=== PATIENT | male | born 1950 | race Caucasian/White ===

== ENCOUNTER → 2020-03-28 | Outpatient (CLI) | payer MEDICARE, OTHER ==
--- NOTE | 2020-03-28 14:16 | XR ---
Right shoulder HISTORY: Right shoulder pain 3 views of the right shoulder Arthropathy is present at the acromioclavicular joint. Right lung apex as visualized is normal. No fr acture or dislocation. IMPRESSION: Acromioclavicular joint arthropathy. Shoulder MRI may be of benefit.
== END | disposition home or self-care (01) ==
LOC: RADXRMAIN 11:33
PROVIDERS: ATTEND Nurse Practitioner Gerontology
DX: M12.811 Other specific arthropathies, not elsewhere classified, right shoulder (principal)

== ENCOUNTER → 2021-01-01 | Outpatient (CLI) | payer MEDICARE, OTHER ==
--- NOTE | 2021-01-01 13:51 | XR ---
EXAMINATION TYPE: XR hand complete LT DATE OF EXAM: 01/01/2021 COMPARISON: NONE HISTORY: Left hand pain TECHNIQUE: Three views are submitted. FINDINGS: The osseous structures are intact. Severe arthropathy of the first carpal metacarpal joint and second MCP joint, and there is no acute fracture or dislocation. IMPRESSION: 1. 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
== END | disposition home or self-care (01) ==
LOC: RADXRMAIN 12:12
PROVIDERS: ATTEND Physician Assistant
DX: M19.042 Primary osteoarthritis, left hand (principal)

== ENCOUNTER 2022-03-18 09:45 | Day surgery (SDC) | payer MEDICARE, OTHER ==
--- NOTE | 2022-03-16 10:47 | P.HPOR ---
History of Present Illness H&P Date: 03/16/22 Chief Complaint: Right thumb CMC arthritis, Right index finger MCP arthritis Subjective: This is a 71 year old male that presents today for initial evaluation regarding a 5 year history of progressively worsening bilateral hand pain, the right is worse than the left. He has tried steroid injections for his problems of the last 7 to 8 years with little relief. He now has daily pain effecting his ability to pinch, grasp and make a fist. Most of his pain is isolated to the index MCP joint and base of the thumb. He has tried NSAID creams with little relief. Physical Examination: LUE: AIN/PIN/Radial/Ulnar/Median motor intact. Radial/Ulnar/Median SILT. 2+/4 Radial/Ulnar pulses palpated. 5/5 APB, 5/5 FDI. Negative Finkelsteins, positive CMC grind, negative Durkan's compression. TTP over index MCP joint 0-50 ROM. RUE: AIN/PIN/Radial/Ulnar/Median motor intact. Radial/Ulnar/Median SILT. 2+/4 Radial/Ulnar pulses palpated. 5/5 APB, 5/5 FDI. Negative Finkelsteins, Positive CMC grind, negative Durkan's compression. TTP over index MCP joint 0-30 ROM. Imaging: X-Rays of the left hand demonstrate severe thumb CMC arthritis, moderate left index finger MCP joint arthritis X-Rays of the right hand demonstrate severe thumb CMC arthritis, severe left index finger MCP joint arthritis Impression: 1.) B/l thumb CMC arthritis, severe. 2.) Right index finger MCP arthritis, severe Plan: Diagnosis and treatment options were discussed with the patient. He has failed conservative treatment and his symptoms are effecting him on a daily basis. He would like to pursue surgery on the right side. I recommend right thumb CMC tendon transfer arthroplasty with right index finger MCP joint silastic implant arthroplasty with possible radial collateral ligament repair/reconstruction. Risks and benefits of surgery including bleeding, infection, damage to surrounding tissue, need for further surgery, residual numbness were discussed and the patient wished to go forward with surgery. PCP clearance is requested. -Ashish Wilkins DO Orthopedic Hand/Upper Extremity Surgeon Physical Examination Osteopathic Statement: *. No significant issues noted on an osteopathic structural exam other than those noted in the History and Physical/Consult.
[2022-03-17 10:10] VITALS: BMI 25.4
[2022-03-18] MEDS ORDERED: LACTATED RINGERS 1,000 ML IV ONE ×2 (10:05→12:30)
[2022-03-18] MEDS ORDERED: MIDAZOLAM 2 MG/2 ML VIAL IVP ONE (10:47)
[2022-03-18] MEDS ORDERED: ONDANSETRON 4 MG/2 ML VIAL ONE (10:58)
[2022-03-18] MEDS ORDERED: DEXAMETHASONE SOD PHOSPHATE 4 MG/ML 1 ML VIAL IVP ONE (11:02)
[2022-03-18] MEDS ORDERED: ONDANSETRON 4 MG/2 ML VIAL IVP ONE (11:03)
[2022-03-18] MEDS ORDERED: ePHEDrine 50 MG/ML 1 ML VIAL ONE (11:23)
[2022-03-18] MEDS ORDERED: fentaNYL (PF) 50 MCG/ML 2 ML AMP ONE (11:23)
[2022-03-18] MEDS ORDERED: MIDAZOLAM 2 MG/2 ML VIAL ONE (11:23)
[2022-03-18] MEDS ORDERED: PROPOFOL 10 MG/ML 20 ML VIAL IV ONE (11:23)
[2022-03-18] MEDS ORDERED: DEXAMETHASONE SOD PHOSPHATE 4 MG/ML 1 ML VIAL ONE (11:23)
[2022-03-18] MEDS ORDERED: KETOROLAC 15 MG/ML 1 ML VIAL ONE (11:23)
[2022-03-18] MEDS ORDERED: ROPIVACAINE 5 MG/ML 30 ML VIAL ONE (11:23)
[2022-03-18] MEDS ORDERED: LIDOCAINE 1% INJ 10MG/ML (20 ML MDV) SQ ONE (13:48)
[2022-03-18] MEDS ORDERED: BUPIVACAINE (PF) 0.5% 30 ML VIAL SQ ONE (13:48)
[2022-03-18 14:13] VITALS: TEMP 97
[2022-03-18 14:54] VITALS: RESP 18
[2022-03-18] MEDS ORDERED: HYDROcodone/APAP 5-325MG 1 EACH TAB ONE (15:25)
[2022-03-18] MEDS ORDERED: HYDROcodone/APAP 5-325MG 1 EACH TAB PO ONE (15:27)
[2022-03-18 16:33] VITALS: BP 137/83; PULSE 75
--- NOTE | 2022-03-18 19:30 | P.OP ---
Date of Procedure: 03/18/22 Preoperative Diagnosis: 1.) Right thumb CMC arthritis 2.) Right index finger MCP joint arthritis Postoperative Diagnosis: 1.) Right thumb CMC arthritis 2.) Right index finger MCP joint arthritis Procedure(s) Performed: 1.) Right thumb carpometacarpal basal joint arthoplasty with trapezium resection 2.) Right index finger metacarpophalangeal arthroplasty with prosthetic implant. Implants: 1.) Arthrex 3.5 Swivel-Lock suture anchor x1 (Thumb CMC) 2.) BioPro Osteotec Silicone finger implant, size 5. (Index MCP joint) [facility], [facility] Surgeon: Ashish Wilkins Acquisitions Editor #1: Anurag Landers Estimated Blood Loss (ml): 5 Pathology: none sent Condition: stable Disposition: PACU Description of Procedure: This is a 71 year old male who presents today for a right thumb CMC basal joint arthroplasty and right index finger MCP joint arthroplasty after having failed conservative treatment for severe thumb CMC and right index finger arthritis. Risks and benefits of surgery were discussed with the patient including bleeding, damage to surrounding tissue, infection, need for further surgery as well as risks of anesthesia including pulmonary embolism and even and the patient wished to proceed with surgical intervention. The patients was seen in the pre-operative area by myself. Consent and H&P were completed and updated. The correct extremity was marked in the pre-operative area by myself and all other questions were answered. Patient received a upper extremity nerve block by the department of anesthesia. He then was brought to the operating room by the department of anesthesia. They remained on the portable stretcher and a rolling hand table was brought to the side of the operative extremity. The patient was then drifted off to sleep by the department of anesthesia. A nonsterile tourniquet was then applied to the operative extremity and the right upper extremity was then prepped and draped in normal sterile fashion. Pre-operative time out was performed indicating the correct patient, procedure and laterality. All in the room agreed. Pre-operative antibiotics were given prior to skin incision. The operative extremity was the exsanguinated with an esmarch bandage and the tourniquet was inflated to 250mmHg. Longitudinal incision was made over the left thumb CMC joint with a 15 blade scalpel. Blunt dissection was taken down to subcutaneous tissues with littler scissors taking care to preserve the branches of the superficial radial nerve. Dorsal radial artery was identified proximally in the incision and protected throughout the procedure. Scalpel was then made to incise the thumb CMC joint creating full thickness flaps off of the proximal metacarpal base and trapezium, this plane was further developed with a periosteal elevator. Elevator was then utilized to identify the thumb CMC joint and scaphotrapezial joint. McGlamory elevator and rongeur were then used to excise the trapezium. Guidewire was then introduced down to the laser line at the base of the first metacarpal through the same incision and was over drilled. Another guidewire was then inserted at the radial base of the first metacarpal near the Insertion of APL and was then over drilled with normal drill guide. A 3.5mm Arthrex SwiveLock anchor was then inserted into the base of the first metacarpal. While holding the thumb in slight traction and full adduction, another 3.5mm Arthrex SwiveLock anchor was inserted into the base of the second metacarpal and the two strands of fibertape were centered across the first metacarpal base to create a sling around the base suspending the thumb metacarpal, good zenon purchase was appreciated. The thumb was successfully suspended and full ROM was achieved passively. Suture ends were cut and skin was closed with several interrupted 4-0 Monocryl sutures followed by a running 4-0 Monocryl stitch. Attention was then drawn to the index finger MCP joint. 15 blade scalpel was used to make a longitudinal incision over the dorsal aspect of the MCP joint. Blunt dissection was taken down to the extensor tendons taking care to protect dorsal sensory nerves. Longitudinal incision was made just radial to the extensor tendon to reveal dorsal capsule. Retractors were placed deep to extensor tendon and plane was developed between dorsal capsule and extensor tendon. Longitudinal incision was made centered over the dorsal capsule and full thickness flaps were created. There was severe arthritic changes at the metacarpal head and proximal phalanx base. Osteophytes were removed with rongeur. Radial and ulnar collateral ligaments were preserved. The joint was then flexed and a micro saggital saw was used to make a tough up cut parallel to the joint line first on proximal phalanx side. Saw was then used to make a parallel cut of the distal portion of the metacarpal head to remove the articular surface while preserving the metaphyseal flare and origins of the collateral ligaments. 3.0 Drill bit was then utilized to enter into the medullary canal, the bone was very hard and sclerotic. Canal finder awl was then used to enter the canal of the proximal phalanx. Sequential broaching was the performed starting with a size 00. When a size 4 was reached, this had good fit and fill of the medullary canal. Starting awl was then inserted into the metacarpal shaft and sequential broaching was performed starting with a size 00 up to a size 4, this had good fit and fill of the medullary canal. Trial size 4 implant was then inserted and found to be undersized. Size 5 was inserted and this matched the patients [id number] anatomy best. The finger was ranged and stable flexion/extension was appreciated. Mini C-arm was utilized to confirm appropriate articular alignment and a symmetric gap. The wound was then irrigated. A final size 5 BioPro Osteotec silastic implant was inserted into the medullary canals under direct visualization. The finger was again ranged and stable flexion/extension was observed and radial and ulnar collateral ligaments were stressed and found to be providing good stability. Layered closure was performed with 3-0 Monocryl suture for capsular closure followed by extensor ragsdale closure with running 3-0 Monocryl suture with skin closure being performed with several interrupted 4-0 Monocryl sutures followed by a running Monocryl suture. 19cc's total of 0.5% bupivicaine and 1% lidocaine was used to perform regional blocks of the index and thumb. Sterile dressing consisting of mastisol and steri strips followed by 4x4s cast padding, and a thumb spica plaster splint and volar splint was applied. Tourniquet was let down and the hand had brisk cap refill and normal perfusion immediately. The patient was then woken by the department of anesthesia and transferred to PACU in stable condition. Anurag CARMONA was present for the case and assisted in major portions of procedure and protection of vital neurovascular structures. Ashish Wilkins DO Orthopedic Hand/Upper Extremity Surgeon
--- NOTE | 2022-03-19 19:55 | P.ANPRN ---
Procedure Note - Anesthesia - Nerve Block Performed Right Supraclavicular Single Time Out Performed: Yes Date of Procedure: 03/18/22 Procedure Start Time: 10:46 Procedure Stop Time: 10:50 Location of Patient: PreOp Indication: Acute Post-Operative Pain, Requested by Surgeon Sedation Type: Sedate with meaningful contact maintained Preparation: Sterile Prep Position: Supine Needle Types: Pajunk Needle Gauge: 21 Ultrasound used to visualize needle placement: Yes Ultrasound used to observe medication spread: Yes Blood Aspirated: No Pain Paresthesia on Injection Noted: No Resistance on Injection: Normal Image Stored and Saved: Yes Events: Uneventful and Well Tolerated (Ropivacaine 0.5% 20 mL plus dexamethasone 4 mg)
== END 2022-03-18 16:35 | disposition home or self-care (01) ==
LOC: OR 09:45
PROVIDERS: ATTEND Orthopaedic Surgery Hand Surgery
DX: M18.11 Unilateral primary osteoarthritis of first carpometacarpal joint, right hand (principal); M19.041 Primary osteoarthritis, right hand; I10 Essential (primary) hypertension; J45.909 Unspecified asthma, uncomplicated; K51.90 Ulcerative colitis, unspecified, without complications; Z79.899 Other long term (current) drug therapy
CPT/HCPCS: 64415; 76942; 25447; 26531; C1713; J2250; J1100; J0690; J2405; J2001; J3010; J2795; J1885; J2704

== ENCOUNTER 2023-07-27 07:20 | Day surgery (SDC) | payer MEDICARE, OTHER ==
[2023-07-23 15:14] VITALS: BMI 26.4
[~2023-07-27 07:20] MED LIST: HYDROmorphone 0.5 MG/0.5 ML SYRINGE IVP PRN; LACTATED RINGERS 1,000 ML IV SCH
[2023-07-27] MEDS: LACTATED RINGERS 1,000 ML IV SCH (07:56)
[2023-07-27 08:04] VITALS: TEMP 97.2
[2023-07-27] MEDS ORDERED: PROPOFOL 10 MG/ML 20 ML VIAL IV ONE (08:50)
[2023-07-27] MEDS ORDERED: LIDOCAINE 1% INJ 10MG/ML (20 ML MDV) ONE (08:50)
--- NOTE | 2023-07-27 09:08 | P.PCN ---
Date of Procedure: 07/27/23 Procedure(s) Performed: BRIEF HISTORY: Patient is a 73-year-old pleasant white male scheduled for an elective colonoscopy as a part of surveillance of long-standing history of ulcerative colitis diagnosed 6 years ago. He is presently maintained on Filgotinib 100 mg daily on a study protocol That he was enrolled about 5 years ago. PROCEDURE PERFORMED: Colonoscopy with biopsy. PREOPERATIVE DIAGNOSIS: Long-standing history of ulcerative colitis. IV sedation per Anesthesia. PROCEDURE: After informed consent was obtained, the patient, was brought into the endoscopy unit. IV sedation was administered by Anesthesia under continuous monitoring. Digital rectal examination was normal. Initially the Olympus CF-160 flexible video colonoscope was then inserted in the rectum, gradually advanced into the cecum without any difficulty. Careful examination was performed as the scope was gradually being withdrawn. Ileocecal valve and the appendiceal orifice were visualized and appeared normal. Prep was excellent. Mucosa of the cecum, ascending colon, transverse colon, descending colon, sigmoid colon, and rectum appeared normal. Random biopsies were done from cecum to rectum at every 10 cm intervals to rule out dysplasia Retroflexion was performed in the rectum and no lesions were seen. The patient tolerated the procedure well. IMPRESSION: Normal-appearing colon from rectum to cecum with no evidence of colitis or colorectal neoplasia. RECOMMENDATIONS: Findings of this examination were discussed with the patient as well as his family. He was advised to follow with the biopsy results. If the biopsies do not show any evidence of dysplasia, he can have a repeat colonoscopy in 2 years..
[2023-07-27 09:45] VITALS: BP 121/75; PULSE 61; RESP 18
== END 2023-07-27 09:50 | disposition home or self-care (01) ==
LOC: ORWHC2ENDO 07:20
PROVIDERS: ATTEND Internal Medicine Gastroenterology
DX: K62.89 Other specified diseases of anus and rectum (principal); I10 Essential (primary) hypertension; J44.9 Chronic obstructive pulmonary disease, unspecified; M19.90 Unspecified osteoarthritis, unspecified site; Z79.899 Other long term (current) drug therapy; Z88.1 Allergy status to other antibiotic agents; Z88.2 Allergy status to sulfonamides; Z88.0 Allergy status to penicillin; Z88.8 Allergy status to other drugs, medicaments and biological substances; Z79.1 Long term (current) use of non-steroidal anti-inflammatories (NSAID)
CPT/HCPCS: 45380; J2001; J2704; 88305

== ENCOUNTER 2023-12-22 19:55 | Observation (INO) | payer MEDICARE, OTHER ==
[2023-12-22 21:29] LABS: Basophils # (A) 0.1 k/uL (0-0.2); Basophils % (A) 1 %; Eosinophils # (A) 0.2 k/uL (0-0.7); Eosinophils % (A) 3 %; HCT 46.2 % (39.0-53.0); HGB 15.4 gm/dL (13.0-17.5); Lymphocytes # (A) 1.9 k/uL (1.0-4.8); Lymphocytes % (A) 22 %; MCH 34.9 pg (25.0-35.0); MCHC 33.3 g/dL (31.0-37.0); MCV 104.7 fL (80.0-100.0); Macrocytosis Slight; Mean Platelet Volume 6.8; Monocytes # (A) 0.6 k/uL (0-1.0); Monocytes % (A) 7 %; Neutrophils # (A) 5.4 k/uL (1.3-7.7); Neutrophils % (A) 64 %; Platelet Count 375 k/uL (150-450); RBC 4.41 m/uL (4.30-5.90); RDW 12.2 % (11.5-15.5); WBC 8.4 k/uL (3.8-10.6)
--- NOTE | 2023-12-22 21:30 | XR ---
EXAMINATION TYPE: XR chest 2V DATE OF EXAM: 12/22/2023 9:19 PM CLINICAL INDICATION:Male, 73 years old with history of lightheadedness; [facility] COMPARISON: None TECHNIQUE: XR chest 2V Frontal view of the chest. FINDINGS: Lungs/Pleura: There is no evidence of pleural effusion, focal consolidation, or pneumothorax. Pulmonary vascularity: Unremarkable. Heart/mediastinum: Cardiomediastinal silhouette is unremarkable. Musculoskeletal: No acute osseous pathology. IMPRESSION: No acute cardiopulmonary disease/process.
[2023-12-22 21:39] LABS: INR 1.1 (<1.2); Prothrombin Time 11.7 sec (10.0-12.5)
--- NOTE | 2023-12-22 21:39 | CT ---
EXAMINATION TYPE: CT brain wo con CT DLP: 1180.4 mGycm, Automated exposure control for dose reduction was used. DATE OF EXAM: 12/22/2023 9:25 PM COMPARISON: None. CLINICAL INDICATION:Male, 73 years old with history of diplopia, Dizziness and double vision x 1 hour . TECHNIQUE: Brain: Axial CT images of the brain were obtained with coronal and sagittal reformats created and rev iewed. Contrast used: None. Oral contrast used: None. FINDINGS: Brain: Extra-axial spaces: No abnormal extra-axial fluid collections. Ventricular system: Dilatation in proportion to cerebral atrophy. Cerebral parenchyma: Cerebral atrophy. No acute intraparenchymal hemorrhage or mass effect. The mercado -white junction is well differentiated. Scattered hypoattenuating areas are seen within the white mat ter. Cerebellum: Unremarkable. Mass effect: No evidence of midline shift. Intracranial vasculature: unremarkable Soft tissues: Normal. Calvarium/osseous structures: No depressed skull fracture. Paranasal sinuses and mastoid air cells: Mild scattered paranasal sinus disease. Visualized orbits: Orbital contents are intact. IMPRESSION: 1. No acute intracranial process. 2. Nonspecific white matter changes, likely secondary to chronic small vessel ischemic disease.
[2023-12-22 21:45] LABS: ALT 128 U/L (4-49); AST 163 U/L (17-59); African American GFR (CKD) 78 (>60 ml/min/1.73 sqM); Albumin 4.8 g/dL (3.5-5.0); Alkaline Phosphatase 68 U/L (38-126); Anion Gap 13 mmol/L; Blood Urea Nitrogen 12 mg/dL (9-20); Calcium 9.6 mg/dL (8.4-10.2); Carbon Dioxide 23 mmol/L (22-30); Chloride 104 mmol/L (98-107); Glucose 77 mg/dL (74-99); Non-African American GFR(CKD) 67 (>60 ml/min/1.73 sqM); Potassium 4.3 mmol/L (3.5-5.1); Sodium 140 mmol/L (137-145); Total Bilirubin 0.6 mg/dL (0.2-1.3); Total Protein 7.9 g/dL (6.3-8.2)
--- NOTE | 2023-12-22 22:14 | ED ---
Dizziness HPI - General Chief Complaint: Dizziness Stated Complaint: dizziness Time Seen by Provider: 12/22/23 20:55 Source: patient, RN notes reviewed Mode of arrival: ambulatory - History of Present Illness Initial Comments: 73-year-old male with history of hypertension presenting to the ER with chief complaint of episode of diplopia 1 hour ago. States he was sitting on his back patio when he began to experience double vision in both eyes that lasted about 30 minutes with associated lightheadedness. He has never had this before. States he is currently asymptomatic. Denies headache, chest pain, palpitations, shortness of breath. Denies blood thinners. Denies history of ID or stroke. - Related Data Home Medications Medication Instructions Recorded Confirmed Diclofenac Sodium [Voltaren] 75 mg PO BID 03/17/22 07/23/23 Filgotinib-100 Mg 100 mg PO DAILY 03/17/22 07/27/23 Fluticasone Propion/Salmeterol 2 puff INHALATION DAILY PRN 03/17/22 07/23/23 [Advair Hfa 115-21 Mcg Inhaler] Mesalamine 2.4 gm PO DAILY 03/17/22 07/23/23 Timolol 0.5% Ophth Soln [Timoptic 1 drop BOTH EYES DAILY 03/17/22 07/23/23 0.5% Ophth Soln] amLODIPine [Norvasc] 2.5 - 5 mg PO BID PRN 03/17/22 07/23/23 Bimatoprost [Lumigan 0.01% Ophth 1 drop BOTH EYES HS 06/18/23 07/23/23 Soln] Montelukast [Singulair] 5 mg PO QAM 06/18/23 07/23/23 Allergies Allergy/AdvReac Type Severity Reaction Status Date / Time cephalexin [From Keflex] AdvReac Nausea & Verified 07/27/23 07:44 Vomiting & Diarrhea ciprofloxacin [From Cipro] AdvReac Nausea & Verified 07/27/23 07:44 Vomiting & Diarrhea clindamycin AdvReac Nausea & Verified 07/27/23 07:44 Vomiting prednisone AdvReac Confusion,DIZZINESS Verified 07/27/23 07:44 if higher dose than 10mg sulfamethoxazole AdvReac Nausea & Verified 07/27/23 07:44 [From Vomiting Sulfamethoxazole-Trimethoprim] Tetracyclines AdvReac Nausea & Verified 07/27/23 07:44 Vomiting & Diarrhea trimethoprim AdvReac Nausea & Verified 07/27/23 07:44 [From Vomiting Sulfamethoxazole-Trimethoprim] Review of Systems ROS Statement: Those systems with pertinent positive or pertinent negative responses have been documented in the HPI. ROS Other: All systems not noted in ROS Statement are negative. Past Medical History Past Medical History: Asthma, Cancer, Eye Disorder, Hypertension, Osteoarthritis (OA) Additional Past Medical History / Comment(s): GLAUCOMA-BILAT EYES, basal cell more than 10 yrs ago. ULCERATUVE COLITIS History of Any Multi-Drug Resistant Organisms: None Reported Past Surgical History: Hernia Repair, Tonsillectomy Additional Past Surgical History / Comment(s): COLONOSCOPY, rt hand removed a joint and replaced with cable. HERNIA X 4 Past Anesthesia/Blood Transfusion Reactions: No Reported Reaction Smoking Status: Former smoker - Past Family History Mother Family Medical History: Chest Pain / Angina Father Additional Family Medical History / Comment(s): many health problems General Exam General appearance: alert, in no apparent distress Head exam: Present: atraumatic, normocephalic, normal inspection Eye exam: Present: normal appearance, PERRL, EOMI. Absent: scleral icterus, conjunctival injection, periorbital swelling Neck exam: Present: normal inspection. Absent: tenderness, meningismus, lymphadenopathy Respiratory exam: Present: normal lung sounds bilaterally. Absent: respiratory distress, wheezes, rales, rhonchi, stridor Cardiovascular Exam: Present: regular rate, normal rhythm, normal heart sounds. Absent: systolic murmur, diastolic murmur, rubs, gallop, clicks GI/Abdominal exam: Present: soft, normal bowel sounds. Absent: distended, tenderness, guarding, rebound, rigid Extremities exam: Present: normal inspection Back exam: Present: normal inspection Neurological exam: Present: alert, oriented X3, CN II-XII intact Psychiatric exam: Present: normal affect, normal mood Skin exam: Present: warm, dry, intact, normal color. Absent: rash Course Vital Signs 12/22/23 12/22/23 19:57 21:01 Temperature 97.5 F L Pulse Rate 66 75 Respiratory 18 17 Rate Blood Pressure 149/98 124/90 O2 Sat by Pulse 96 94 L Oximetry EKG Findings - EKG Results: EKG: interpreted by ERMD (EKG reveals normal sinus rhythm with no ST changes. Ventricular rate 65 bpm, TX interval 200, QRS duration 96, QT/QTc 414/425.) Medical Decision Making - Medical Decision Making Was pt. sent in by a medical professional or institution (KRISTINE Chacon, [employer] VE[employer]LE ESCORT DRIVER, urgent care, hospital, or [facility]...) When possible be specific @ -No Did you speak to anyone other than the patient for history (EMS, parent, family, police, friend...)? What history was obtained from this source @ -No Did you review nursing and triage notes (agree or disagree)? Why? @ -I reviewed and agree with nursing and triage notes Were old charts reviewed (outside hosp., previous admission, EMS record, old EKG, old radiological studies, urgent care reports/EKG's, [facility] records)? Report findings @ -No old charts were reviewed Differential Diagnosis (chest pain, altered mental status, abdominal pain women, abdominal pain men, vaginal bleeding, weakness, fever, dyspnea, syncope, headache, dizziness, GI bleed, back pain, seizure, CVA, palpatations, mental health, musculoskeletal)? @ -Differential CVA Ischemic stroke, hemorrhagic stroke, brain tumor, atypical migraine, Wernicke's encephalopathy, seizure, multiple sclerosis, meningitis, encephalitis, hypoglycemia, Guillain-Briggs, electrolytes disturbance, myasthenia gravis.... This is not meant to be an all-inclusive list EKG interpreted by me (3pts min.). @ -As above X-rays interpreted by me (1pt min.). @ -Chest x-ray reveals no acute process CT interpreted by me (1pt min.). @ -CT of head revealed no acute intracranial process, nonspecific white matter changes, likely secondary to chronic small vessel ischemic disease U/S interpreted by me (1pt. min.). @ -None done What testing was considered but not performed or refused? (CT, X-rays, U/S, labs)? Why? @ -None What meds were considered but not given or refused? Why? @ -None Did you discuss the management of the patient with other professionals (professionals i.e. KRISTINE Chacon, [employer] VEH[employer] ESCORT DRIVER, lab, RT, psych nurse, social services, contact center team lead, teacher, fisheries technical officer, manager of case management)? Give summary @ -I spoke with Stephanie from [facility] who accepts admission at this time for TIA with consultation to neurology services Was smoking cessation discussed for >3mins.? @ -No Was critical care preformed (if so, how long)? @ -No Were there social determinants of health that impacted care today? How? (Homelessness, low income, unemployed, alcoholism, drug addiction, transportation, low edu. Level, literacy, decrease access to med. care, custodial, rehab)? @ -No Was there de-escalation of care discussed even if they declined (Discuss DNR or withdrawal of care, Hospice)? DNR status @ -No What co-morbidities impacted this encounter? (DM, HTN, Smoking, COPD, CAD, Cancer, CVA, ARF, Chemo, Hep., AIDS, mental health diagnosis, sleep apnea, morbid obesity)? @ -Hypertension Was patient admitted / discharged? Hospital course, mention meds given and route, prescriptions, significant lab abnormalities, going to OR and other pertinent info. @ -Patient was admitted. Patient was seen and evaluated for episode of diplopia. Patient is currently asymptomatic. Vital signs and physical exam is unremarkable. Lab work including CBC, CMP, troponin is remarkable for AST 163 and ALT 128. EKG reveals normal sinus rhythm with no ST changes. CT reveals no acute intracranial process. Chest x-ray is negative for acute process. I spoke with Stephanie from [facility] who accepts admission at this time for TIA with consultation to neurology services. Carotid Doppler and echocardiogram ordered and pending at time of admission. Discussed findings with patient and he is a greeable to plan. Case was discussed with my ED attending Dr. Mcmahon. Undiagnosed new problem with uncertain prognosis? @ -No Drug Therapy requiring intensive monitoring for toxicity (Heparin, Nitro, Insulin, Cardizem)? @ -No Were any procedures done? @ -No Diagnosis/symptom? @ -Transient ischemic attack Acute, or Chronic, or Acute on Chronic? @ -Acute Uncomplicated (without systemic symptoms) or Complicated (systemic symptoms)? @ -Uncomplicated Side effects of treatment? @ -No Exacerbation, Progression, or Severe Exacerbation? @ -No Poses a threat to life or bodily function? How? (Chest pain, USA, ID, pneumonia, PE, COPD, DKA, ARF, appy, cholecystitis, CVA, Diverticulitis, Homicidal, Suic idal, threat to staff... and all critical care pts) @ -Yes, TIA - Lab Data Result diagrams: 12/22/23 20:37 12/22/23 20:37 Lab Results 12/22/23 12/22/23 12/22/23 Range/Units 20:37 20:37 20:37 WBC 8.4 (3.8-10.6) k/uL RBC 4.41 (4.30-5.90) m/uL Hgb 15.4 (13.0-17.5) gm/dL Hct 46.2 (39.0-53.0) % MCV 104.7 H (80.0-100.0) fL MCH 34.9 (25.0-35.0) pg MCHC 33.3 (31.0-37.0) g/dL RDW 12.2 (11.5-15.5) % Plt Count 375 (150-450) k/uL MPV 6.8 Neutrophils % 64 % Lymphocytes % 22 % Monocytes % 7 % Eosinophils % 3 % Basophils % 1 % Neutrophils # 5.4 (1.3-7.7) k/uL Lymphocytes # 1.9 (1.0-4.8) k/uL Monocytes # 0.6 (0-1.0) k/uL Eosinophils # 0.2 (0-0.7) k/uL Basophils # 0.1 (0-0.2) k/uL Macrocytosis Slight PT 11.7 (10.0-12.5) sec INR 1.1 (<1.2) APTT 25.0 (22.0-30.0) sec Sodium 140 (137-145) mmol/L Potassium 4.3 (3.5-5.1) mmol/L Chloride 104 (98-107) mmol/L Carbon Dioxide 23 (22-30) mmol/L Anion Gap 13 mmol/L BUN 12 (9-20) mg/dL Creatinine 1.10 (0.66-1.25) mg/dL Est GFR (CKD-EPI)AfAm 78 (>60 ml/min/1.73 sqM) Est GFR (CKD-EPI)NonAf 67 (>60 ml/min/1.73 sqM) Glucose 77 (74-99) mg/dL Calcium 9.6 (8.4-10.2) mg/dL Total Bilirubin 0.6 (0.2-1.3) mg/dL AST 163 H (17-59) U/L ALT 128 H (4-49) U/L Alkaline Phosphatase 68 (38-126) U/L Troponin I (0.000-0.034) ng/mL Total Protein 7.9 (6.3-8.2) g/dL Albumin 4.8 (3.5-5.0) g/dL 12/22/23 Range/Units 20:37 WBC (3.8-10.6) k/uL RBC (4.30-5.90) m/uL Hgb (13.0-17.5) gm/dL Hct (39.0-53.0) % MCV (80.0-100.0) fL MCH (25.0-35.0) pg MCHC (31.0-37.0) g/dL RDW (11.5-15.5) % Plt Count (150-450) k/uL MPV Neutrophils % % Lymphocytes % % Monocytes % % Eosinophils % % Basophils % % Neutrophils # (1.3-7.7) k/uL Lymphocytes # (1.0-4.8) k/uL Monocytes # (0-1.0) k/uL Eosinophils # (0-0.7) k/uL Basophils # (0-0.2) k/uL Macrocytosis PT (10.0-12.5) sec INR (<1.2) APTT (22.0-30.0) sec Sodium (137-145) mmol/L Potassium (3.5-5.1) mmol/L Chloride (98-107) mmol/L Carbon Dioxide (22-30) mmol/L Anion Gap mmol/L BUN (9-20) mg/dL Creatinine (0.66-1.25) mg/dL Est GFR (CKD-EPI)AfAm (>60 ml/min/1.73 sqM) Est GFR (CKD-EPI)NonAf (>60 ml/min/1.73 sqM) Glucose (74-99) mg/dL Calcium (8.4-10.2) mg/dL Total Bilirubin (0.2-1.3) mg/dL AST (17-59) U/L ALT (4-49) U/L Alkaline Phosphatase (38-126) U/L Troponin I <0.012 (0.000-0.034) ng/mL Total Protein (6.3-8.2) g/dL Albumin (3.5-5.0) g/dL Disposition Clinical Impression: Transient ischemic attack (TIA) Disposition: ADMITTED IP TO THIS HOSP Referrals: Ady Beavers MD [Primary Care Provider] - 1-2 days Time of Disposition: 22:58
[2023-12-22] MEDS: ASPIRIN 325 MG TAB PO STA (23:36)
[2023-12-22] MEDS: SODIUM CHLORIDE 0.9% 1,000 ML IV SCH (23:36)
[2023-12-23 00:18] VITALS: RESP 16
--- NOTE | 2023-12-23 07:43 | US ---
EXAMINATION TYPE: US carotid duplex BILAT DATE OF EXAM: 12/22/2023 COMPARISON: NONE CLINICAL INDICATION: Male, 73 years old with history of Stenosis; Patient states he had double vision . TECHNIQUE: Carotid duplex ultrasound examination. Indirect Doppler criteria was utilized. FINDINGS: EXAM MEASUREMENTS: RIGHT: Peak Systolic Velocity (PSV) cm/sec ----- Right CCA: 69.6 ----- Right ICA: 73.5 ----- Right ECA: 76.8 ICA/CCA ratio: 1.1 RIGHT: End Diastole cm/sec ----- Right CCA: 17.3 ----- Right ICA: 28.5 ----- Right ECA: 9.8 LEFT: Peak Systolic Velocity (PSV) cm/sec ----- Left CCA: 73.5 ----- Left ICA: 63.6 ----- Left ECA: 84.5 ICA/CCA ratio: 0.9 LEFT: End Diastole cm/sec ----- Left CCA: 20.8 ----- Left ICA: 19.7 ----- Left ECA: 10.4 VERTEBRALS (direction of flow): Right Vertebral: Antegrade Left Vertebral: Antegrade Rhythm: Normal CONVEYOR BELT INSTALLER NOTES: No significant velocity elevations. Mild plaque seen within bilateral bifurcations IMPRESSION: No significant hemodynamic stenosis. Criteria for Assigning % of Stenosis / Diameter reduction (Estimation based on the indirect measurements of the internal carotid artery velocities (ICA PSV). 1. Normal (no stenosis)=ICA PSV < 125 cm/s: ratio < 2.0: ICA EDV<40 cm/s. 2. Less than 50% stenosis=ICA PSV < 125 cm/s: ratio < 2.0: ICA EDV<40 cm/s. 3. 50 to 69% stenosis=ICA PSV of 125 to 230 cm/s: ration 2.0 ? 4.0: ICA EDV 40-100 cm/s. 4. Greater than 70% stenosis to near occlusion= ICA PSV > 230 cm/s: ratio > 4.0: ICA EDV > 100 cm/s. 5. Near occlusion= ICA PSV velocities may be low or undetectable: variable ratio and ICA EDV. 6. Total occlusion=unable to detect flow.
[2023-12-23 08:12] VITALS: PULSE 65
[2023-12-23 08:33] LABS: Chol/HDL Ratio 3.02 Ratio; LDL Cholesterol,Calculated 105.1 mg/dL (0.0-131.0)
[2023-12-23] MEDS: ASPIRIN 325 MG TAB PO SCH (08:44)
[2023-12-23 13:53] VITALS: BP 164/94; TEMP 98.2
[2023-12-23] MEDS ORDERED: ATORVASTATIN 80 MG TAB PO SCH (21:00)
--- NOTE | 2023-12-23 22:24 | HP ---
HISTORY AND PHYSICAL CHIEF COMPLAINT: Diplopia. HISTORY OF PRESENT ILLNESS: This is a 73-year-old gentleman with a past medical history of multiple medical problems including hypertension, admitted with episodes of diplopia. The patient had diplopia in both eyes lasted for about 30 minutes associated with some lightheadedness. Initial workup was negative. Neurology evaluation in progress. There is no history of any fever, rigors, or chills. PAST MEDICAL HISTORY: Reviewed include hypertension. Rest of the history and rest of the chart is also reviewed. HOME MEDICATIONS: Reviewed include Norvasc. Dose and rest of medications noted. ALLERGIES: Reviewed include Keflex. Other allergies noted. FAMILY HISTORY: History of chest pain and angina. SOCIAL HISTORY: Previous history of smoking. REVIEW OF SYSTEMS: Fourteen-point review is negative except as mentioned earlier. PHYSICAL EXAMINATION: VITAL SIGNS: Pulse is 65, blood pressure 160/94, respirations 16. HEENT: Conjunctivae normal. NECK: No JVD. CARDIOVASCULAR: S1. S2. RESPIRATIONS: Breath sounds diminished at the bases. ABDOMEN: Soft. LEGS: No edema. NERVOUS SYSTEM: Vision is normal. No diplopia. No nystagmus. Movements are full in all directions. Minimal tremors present. LABORATORY DATA: AST and ALT elevated. ASSESSMENT: 1. Diplopia, possible acute transient ischemic attack. 2. Elevated AST, ALT. 3. Asthma. 4. Hypertension. 5. Degenerative joint disease. 6. History of glaucoma. RECOMMENDATIONS: This is a 73-year-old gentleman presented with multiple complex medical issues, we will monitor the patient closely. Continue the current medications and continue symptomatic treatment. Otherwise, at this time, I would recommend Neurology consultation and full neurovascular workup including possible MRI. Prognosis guarded. Further recommendations to follow. Recommend close followup with the primary physician after discharge. MMODL / IJN: [id number] /
--- NOTE | 2023-12-23 22:54 | DS ---
DISCHARGE SUMMARY FINAL DIAGNOSES: 1. Diplopia, possible acute TIA. 2. Hypertension. 3. History of asthma. 4. History of DJD. 5. History of glaucoma. DISCHARGE DISPOSITION: The patient left the hospital against medical advice. HISTORY OF PRESENT ILLNESS: This is a 73-year-old gentleman with a past medical history of multiple medical problems, admitted with diplopia; however, the patient is not willing to stay for further workup and neurology evaluation. The patient left the hospital against medical advice. The prognosis remains extremely guarded throughout the hospital stay. Please refer to the staff notes, history and physical, and other notes for further information. MMODL / IJN: [id number] /
== END 2023-12-23 13:44 | disposition left against medical advice (07) ==
LOC: EC 19:55 → 6NMEDSUR 22:27
PROVIDERS: ADMIT Family Medicine; ATTEND Family Medicine
DX: R42 Dizziness and giddiness (principal); H53.2 Diplopia; R79.89 Other specified abnormal findings of blood chemistry; J45.909 Unspecified asthma, uncomplicated; I10 Essential (primary) hypertension; M19.90 Unspecified osteoarthritis, unspecified site; H40.9 Unspecified glaucoma; Z87.891 Personal history of nicotine dependence
CPT/HCPCS: 96360; 96361; 99285; 36415; 94760; 93005; 97161; 80061; 80053; 84484; 85025; 85610; 85730; 71046; 93880; 70450; G0378 ×2

== ENCOUNTER → 2024-03-31 | Outpatient (CLI) | payer MEDICARE, OTHER ==
--- NOTE | 2024-04-03 10:54 | MR ---
EXAMINATION TYPE: MR lumbar spine wo con DATE OF EXAM: 03/31/2024 COMPARISON: Radiograph 02/04/2024 HISTORY: 73-year-old male M54.50, M47.816, Low back pain TECHNIQUE: Multiplanar, multisequence images of the lumbar spine were acquired without IV contrast. FINDINGS: Heterogeneous marrow signal suggesting red marrow hyperplasia. Some scattered Modic type II fatty end plate change is noted associated with the degenerative disc disease. Smaller areas of edematous Modic type I endplate change suggests towards the right at L4-L5 and anteriorly at L2-L3. No suspicious bone marrow replacement. Conus medullaris is normal. Vertebral body heights are preserved. There is advanced hypertrophic facet arthropathy mid to lower lumbar spine with associated ligamentum flavum thickening. Changes result in a degenerative grade 1, nearly grade 2 anterolisthesis at L4-L5. Mild to moderate multilevel degenerative disc disease with desiccated and bulging discs multiple leve ls. Posterior annular fissure at L5-S1. An additional right paracentral disc protrusion at L5-S1 cont aining annular fissure, sagittal image 11 and axial image 3. At L4-L5, there is advanced hypertrophic facet arthropathy with ligamentum flavum thickening and near ly grade 2 anterolisthesis. Changes result in focal moderate canal stenosis with moderate to severe r ight neuroforaminal stenosis. At L5-S1, there is diffuse disc bulge and moderate facet arthropathy. Changes result in moderate righ t greater than left neuroforaminal stenosis. The right paracentral disc protrusion with annular fissu re probably abuts the traversing right S1 nerve root. No significant spinal canal stenosis here. Other levels show bulging discs with ventral impression on the thecal sac without significant spinal canal stenosis. Variable mild neuroforaminal stenoses are present throughout the upper and mid lumbar spine. Ectatic proximal abdominal aorta at 2.7 cm. No prevertebral or paravertebral soft tissue abnormal is seen. IMPRESSION: 1. Moderate multilevel degenerative disc disease. Advanced hypertrophic facet arthropathy mid to lowe r lumbar spine with associated ligamentum flavum thickening. Changes result in a grade 1, nearly grad e 2 anterolisthesis at L4-L5. 2. Overall moderate spinal canal stenosis at L4-L5 with moderate to severe right neuroforaminal steno sis. 3. Posterior disc bulge with annular fissure at L5-S1. There is additional right paracentral disc pro trusion here also containing an annular fissure. This may abut the traversing right S1 nerve root. Al maia with moderate facet arthropathy there is moderate right greater than left neural foraminal stenos is at this level. 4. Heterogeneous red marrow hyperplasia which can be seen with anemia, obesity, smoking, chronic dise ase. Clinically correlate. [facility], Workstation: CARLOS EDUARDO, 04/03/2024 10:51 AM
== END | disposition home or self-care (01) ==
LOC: RADMRIMAIN 13:05
PROVIDERS: ATTEND Orthopaedic Surgery
DX: M51.370 Other intervertebral disc degeneration, lumbosacral region with discogenic back pain only (principal); M51.26 Other intervertebral disc displacement, lumbar region; M47.816 Spondylosis without myelopathy or radiculopathy, lumbar region; M43.16 Spondylolisthesis, lumbar region; M99.73 Connective tissue and disc stenosis of intervertebral foramina of lumbar region
CPT/HCPCS: 72148

== ENCOUNTER → 2024-05-03 | Outpatient (CLI) | payer MEDICARE, OTHER ==
[2024-05-03 13:45] VITALS: BP 148/98; PULSE 70; RESP 16; TEMP 97.1
--- NOTE | 2024-05-03 15:07 | P.PAINPG ---
Objective - Vital Signs Vital signs: Vital Signs Temp 97.1 F L 05/03/24 13:40 Pulse 70 05/03/24 13:40 Resp 16 05/03/24 13:40 BP 148/98 05/03/24 13:40 Pulse Ox 96 05/03/24 13:40 FiO2 Intake & Output 05/02/24 05/03/24 05/03/24 18:59 06:59 18:59 Weight 83.007 kg PQRS Measure Charge Sheet Mode of Arrival: Ambulatory Comment: HISTORY OF PRESENT ILLNESS: A 73 yr old male as a referral from [facility] presents today w severe and chronic LBP > 1 yr secondary to radiculopathy, spondylosis and facet arthropathy without myelopathy for evaluation. Pt states pain level is provoked at 8 /10 in intensity, constant, localized in the lower lumbar spine, predominantly axial, dull in character w occasional shooting pain towards the BL hips. Pain is provoked by sitting for periods > 20 min. Pain is alleviated by PT x 5 wks which ended in Feb 2024, physician guided home exercises5 times weekly since Feb 2024, chiropractic treatments x 10 wks which ended in Nov 2023, ice, medications (Diclofenac, Ibu), home traction, repositioning and rest . Oswestry axial pain score at 32. PMH: OA, Asthma, Cancer, Eye Disorder, HTN, BL Glaucoma, Basal Cell CA (> 10 yrs ago), UC PSH: Hernia Repair x4, Tonsillectomy, Colonoscopy, R Hand Surgery SH: Former tobacco user, No ETOH abuse, No illicit drug use FH: Mo- Angina. Fa- Multiple comorbidities All: See list Meds: See list REVIEW OF ORGAN SYSTEMS: CONSTITUTIONAL: No fevers or chills. No recent weight loss. NEUROLOGICAL: + numbness and tingling along the distal extremities. No seizure disorders or headaches. MUSCULOSKELETAL: + pain PSYCHIATRIC: Denies current depression or suicidal thoughts. Physical Examinations : Constitutional : Cooperative , not in acute distress . Neurologic : Cranial nerve II to XII intact. No focal neurological deficits. Psychiatric : alert & oriented x 3. Matching mood & appropriate affect. Judgment & insight intact. Musculoskeletal : Cervical Spine Motor strength in the deltoid and biceps: Normal right side. Normal Left side Motor strength biceps and the wrist extensors: Normal right side . Normal left side Motor strength in the triceps muscle: Normal right side. Normal left side Deep tendon reflexes: Normal at the biceps. Normal at Brachioradialis. Normal at triceps Vertebral body tenderness to deep palpation over Cervical facet loading test: positive bilaterally Spurling test: positive bilaterally Neck distraction test: positive bilaterally Jeannine sign: positive bilaterally Lumbar spine Motor strength lower extremities ,thigh and legs 5/5 Right side , 5/5 Left side Deep tendon reflexes : Normal Knee Jerk. Normal Ankle Jerk Vertebral body tenderness over L5 Reynolds Test positive BL L4-L5 Lumbar facet Loading Test: positive Right / positive Left Range of motion of the lumbar spine Flexion 30 degrees, extension 10 degrees Straight Leg Raise test: Left/ Right positive at degrees Adebayo test: positive right / positive left. Severe tenderness over the Sacroiliac joint on the Right / Left sides Gaenslen test: positive bilaterally Seated flexion test: positive bilaterally. Sacral spine : Severe tenderness over the Sacroiliac joint: right side / left side Range of motion: Flexion of the lumbar spine <60 degrees Range of motion: Extension of the lumbar spine <20 degrees Gaenslen's Test positive Adebayo test: positive right side / left side Thigh Thrust Test Sacral Thrust Test Imaging: MRI non contrast lumbar spine from 03/31/24 reviewed Assessment/ Plan : Lumbar radiculopathy Recommendation of BL TFESI L4-L5 #1. Would also benefit from JACOBY L5-S1 if needed. Risks, benefits of procedure discussed and patient verbalized understanding. Admits to anti- coagulant use or medical history of diabetes. Protocol for discontinuation/ continuation of medications anton procedure discussed. All questions answered. I have spent greater than 30 minutes on patient care today. Dr Mccormick was available by phone for the evaluation of this patient. The time was used to review the medical records including relevant urine studies and Prescription history (MAPs), review of the available imaging, evaluation and examination of the patient, coordination of care with the medical staff and if applicable referring physicians, as well as creation of the medical record - Pain Location Bilateral Lower Back Non-Pharmacological Interventions: Chiropractic Treatment, Ice, Physical Therapy, Position/Reposition, Sitting, Standing Pharmacological Interventions: PRN Medication PQRS Narrative: Blood Pressure 148/98 Pain Intensity [Bilateral 8 Lower Back] Scale Used Numeric (1 - 10) Hx Alcohol Use (MH) No Home Medications: Ambulatory Orders Filgotinib-100 Mg 100 mg PO DAILY 03/17/22 Mesalamine 2.4 gm PO DAILY 03/17/22 Timolol 0.5% Ophth Soln [Timoptic 0.5% Ophth Soln] 1 drop BOTH EYES BID 03/17/22 amLODIPine [Norvasc] 10 mg PO DAILY PRN 03/17/22 Bimatoprost [Lumigan 0.01% Ophth Soln] 1 drop BOTH EYES HS 06/18/23 Fluticasone Propion/Salmeterol [Advair Hfa 45-21 Mcg Inhaler] 2 puff INHALATION RT-DAILY 12/23/23 Controlled Substance Measures - Controlled Substance Measures Is patient prescribed a controlled substance at discharge?: No
== END ==
LOC: PNWHC3 13:13
PROVIDERS: ATTEND Specialist
DX: M43.16 Spondylolisthesis, lumbar region (principal); M47.26 Other spondylosis with radiculopathy, lumbar region; Z88.1 Allergy status to other antibiotic agents; Z88.2 Allergy status to sulfonamides; Z88.8 Allergy status to other drugs, medicaments and biological substances
CPT/HCPCS: 99211

== ENCOUNTER 2024-05-16 11:17 | Day surgery (SDC) | payer MEDICARE, OTHER ==
[2024-05-16 11:40] VITALS: RESP 16; TEMP 97.3
[2024-05-16] MEDS ORDERED: methylPREDNISolone ACETATE 80 MG/ML 1 ML VIAL ONE (12:37)
[2024-05-16] MEDS ORDERED: IOPAMIDOL M200 10 ML VIAL ONE (12:37)
--- NOTE | 2024-05-16 12:51 | P.PCN ---
Date of Procedure: 05/16/24 Procedure(s) Performed: PREOPERATIVE DIAGNOSIS: 1-Lumbar radiculopathy . POSTOPERATIVE DIAGNOSIS: 1-lumbar radiculopathy. PROCEDURE 1. Transforaminal epidural steroid injection under fluoroscopic guidance at bilateral L4-5 level. (Fluoroscopy images stored on file in the radiology Department ) 2. Lumbar epidurogram . ANESTHESIA: Local with 1% lidocaine 3 ml. EBL: Minimal PROCEDURE INDICATION: The patient with low back pain and radiculopathy symptoms unresponsive to conservative treatment. PROCEDURE DESCRIPTION / TECHNIQUE: The patient was seen and identified in the preoperative area. Risks, benefits, complications, and alternatives were discussed with the patient. The patient agreed to proceed with the procedure and signed the consent. IV was started, and vital signs were stable. Patient was taken to the OR and time out was completed. The patient was placed in the prone position on procedure table and a pillow was placed under the abdomen to reduce lumbar lordosis. The lumbosacral area was prepped and draped in the usual sterile fashion. Critical pause was taken. Vital signs were closely monitored during the procedure. Using oblique fluoroscopy, the chin of the `Ynes dog at Right L4-5 level was identified, and the skin and deeper tissues just below was localized with 1% lidocaine. Subsequently, a 22-gauge 3.5-inch spinal needle was advanced under a tunneled view fluoroscopic guidance just underneath the chin of the `Ynes dog at the right L4-5 Under lateral fluoroscopy, the needle was then advanced to the posterior border of the interforaminal space. After negative aspiration of CSF and blood and with no paresthesias, 1 mL Isovue 200 contrast dye was i njected excellent epidurogram and outlining of the nerve root Subsequently, 3 mL of block solution containing 30 mg Depo-Medrol and 2 mL of 0.9% normal saline PF was injected. Needle was removed and the same procedure was repeated at the left L4-5 level . At the end of the procedure, skin was cleansed, and bandages were applied. COMPLICATIONS:none DISPOSITION / PLANS: The patient was placed in a supine position and transferred to the recovery area in a stable condition for observation. There was no evidence of lower extremity motor or sensory deficit after the procedure. Patient was discharged from the recovery room after meeting discharge criteria. Home discharge instructions were given to the patient by the staff. The patient was reexamined prior to discharge.
[2024-05-16 13:22] VITALS: BP 142/90; PULSE 69
--- NOTE | 2024-05-16 13:34 | FL ---
EXAMINATION TYPE: FL guided pain mgmt statistic DATE OF EXAM: 05/16/2024 12:54 PM COMPARISON: Pre Operative Images if available both CT/MRI or plain film CLINICAL INDICATION: Male, 73 years old with history of TRANSFORAMINAL EPI; TECHNIQUE: FL guided pain mgmt statistic, multiple fluoroscopic images provided for procedure. Total fluoroscopy time: 15.2 seconds Total submitted images to PACS: 2 DAP: [id number] mGym2 Gycm2 uGym2 cGycm2 or equivalent. FINDINGS: Fluoroscopic images during injection for pain management demonstrate multilevel degeneration changes throughout the spine. No evidence for fracture. No acute process identified. IMPRESSION: 1. No evidence for intraoperative complication. 2. Please see the operative/procedural note for further details. [facility], , 05/16/2024 1:31 PM
== END 2024-05-16 13:26 | disposition home or self-care (01) ==
LOC: ORPAIN 11:17
PROVIDERS: ATTEND Specialist
DX: M54.16 Radiculopathy, lumbar region (principal); Z88.2 Allergy status to sulfonamides; Z88.1 Allergy status to other antibiotic agents
CPT/HCPCS: 64483; Q9966; J1010

== ENCOUNTER → 2024-06-14 | Outpatient (CLI) | payer MEDICARE, OTHER ==
[2024-06-14 14:36] VITALS: BP 153/88; PULSE 78; RESP 20; TEMP 98.4
--- NOTE | 2024-06-14 16:08 | P.PAINPG ---
PQRS Measure Charge Sheet Comment: HISTORY OF PRESENT ILLNESS: A 73 yr old male presents today w severe and chronic LBP > 1 yr secondary to radiculopathy, spondylosis and facet arthropathy without myelopathy for evaluation s/p BL TFESI L4-L5 #1. Pt states he experienced 80 % pain relief x 3- 4 wks s/p procedure. Pt states pain level is provoked at 1 /10 in intensity, constant, localized in the lower lumbar spine, predominantly axial, dull in character w occasional shooting pain towards the BL hips. Pain is provoked by sitting for periods > 20 min. Pain is alleviated by PT x 5 wks which ended in Feb 2024, physician guided home exercises5 times weekly since Feb 2024, chiropractic treatments x 10 wks which ended in Nov 2023, ice, medications, home traction, repositioning and rest . Interventional procedures include BL TFESI L4-L5 x1 Medications include Diclofenac, Ibu REVIEW OF ORGAN SYSTEMS: CONSTITUTIONAL: No fevers or chills. No recent weight loss. NEUROLOGICAL: + numbness and tingling along the distal extremities. No seizure disorders or headaches. MUSCULOSKELETAL: + pain PSYCHIATRIC: Denies current depression or suicidal thoughts. Physical Examinations : Constitutional : Cooperative , not in acute distress . Neurologic : Cranial nerve II to XII intact. No focal neurological deficits. Psychiatric : alert & oriented x 3. Matching mood & appropriate affect. Judgment & insight intact. Musculoskeletal : Cervical Spine Motor strength in the deltoid and biceps: Normal right side. Normal Left side Motor strength biceps and the wrist extensors: Normal right side . Normal left side Motor strength in the triceps muscle: Normal right side. Normal left side Deep tendon reflexes: Normal at the biceps. Normal at Brachioradialis. Normal at triceps Vertebral body tenderness to deep palpation over Cervical facet loading test: positive bilaterally Spurling test: positive bilaterally Neck distraction test: positive bilaterally Jeannine sign: positive bilaterally Lumbar spine Motor strength lower extremities ,thigh and legs 5/5 Right side , 5/5 Left side Deep tendon reflexes : Normal Knee Jerk. Normal Ankle Jerk Vertebral body tenderness over L5 Reynolds Test positive BL L4-L5 Lumbar facet Loading Test: positive Right / positive Left Range of motion of the lumbar spine Flexion 30 degrees, extension 10 degrees Straight Leg Raise test: Left/ Right positive at degrees Adebayo test: positive right / positive left. Severe tenderness over the Sacroiliac joint on the Right / Left sides Gaenslen test: positive bilaterally Seated flexion test: positive bilaterally. Sacral spine : Severe tenderness over the Sacroiliac joint: right side / left side Range of motion: Flexion of the lumbar spine <60 degrees Range of motion: Extension of the lumbar spine <20 degrees Gaenslen's Test positive Adebayo test: positive right side / left side Thigh Thrust Test Sacral Thrust Test Imaging: MRI non contrast lumbar spine from 03/31/24 reviewed Assessment/ Plan : Lumbar radiculopathy Will manage residual pain and may RTC on an as needed basis. All questions answered. I have spent greater than 30 minutes on patient care today. Dr Mccormick was available by phone for the evaluation of this patient. The time was used to review the medical records including relevant urine studies and Prescription history (MAPs), review of the available imaging, evaluation and examination of the patient, coordination of care with the medical staff and if applicable referring physicians, as well as creation of the medical record PQRS Narrative: Hx Alcohol Use (MH) No Home Medications: Ambulatory Orders Filgotinib-100 Mg 100 mg PO DAILY 03/17/22 Mesalamine 2.4 gm PO DAILY 03/17/22 amLODIPine [Norvasc] 10 mg PO DAILY 03/17/22 Bimatoprost [Lumigan 0.01% Ophth Soln] 1 drop BOTH EYES HS 06/18/23 Fluticasone Propion/Salmeterol [Advair Hfa 45-21 Mcg Inhaler] 2 puff INHALATION RT-DAILY 12/23/23 Diclofenac (Unk) 1 tab PO DIRECTED 05/15/24 Motrin (Unk) 1 tab PO DIRECTED 05/15/24 Controlled Substance Measures - Controlled Substance Measures Is patient prescribed a controlled substance at discharge?: No
== END ==
LOC: PNWHC3 13:08
PROVIDERS: ATTEND Specialist
DX: M54.16 Radiculopathy, lumbar region (principal); Z88.1 Allergy status to other antibiotic agents; Z88.2 Allergy status to sulfonamides; Z88.8 Allergy status to other drugs, medicaments and biological substances
CPT/HCPCS: 99211

== ENCOUNTER → 2024-08-15 | Outpatient (CLI) | payer MEDICARE, OTHER ==
--- NOTE | 2024-08-15 12:26 | CT ---
EXAMINATION TYPE: CT lumbar spine wo con DATE OF EXAM: 08/15/2024 12:17 PM COMPARISON: None CLINICAL INDICATION: Male, 74 years old with history of M48.062,M54.16,M48.061; PHH, back pain TECHNIQUE: Unenhanced CT of the lumbar spine was performed. Bone and soft tissue window settings are submitted as well as coronal and sagittal reconstructions. CT DLP: 900.[address] CTDI: mGy Automated exposure control for dose reduction was used. FINDINGS: L1-L2: Normal disc space height. No disc herniation protrusion or central stenosis. No facet joint arthropathy. No evidence for foraminal encroachment. L2-L3: Moderate degenerative disc space narrowing. No disc herniation protrusion or central stenosis. No facet joint arthropathy. No evidence for foraminal encroachment. L3-L4: Moderate degenerative narrowing with the posterior disc bulge with encapsulating spur. Small r ight paracentral disc protrusion is difficult to exclude. There appears to be right lateral recess st enosis and mild right foraminal encroachment without central stenosis. L4-L5: Grade 1 anterolisthesis measuring 5.6 mm L4 and L5 related to severe facet joint arthropathy. Posterior disc bulge with hypertrophy of the ligamentum flavum resulting in [id number]-sk-[id number] central stenosis. L5-S1: Vacuum disc noted with severe narrowing seen. Broad-based posterior disc bulge with effacement of the ventral thecal sac. No evidence for central stenosis or mell herniation. No paraspinal masses are identified. Lumbar segments are intact. IMPRESSION: 1. Multilevel degenerative disc disease. 2. Central stenosis at L4-5. See above [facility], , 08/15/2024 12:23 PM
--- NOTE | 2024-08-15 12:59 | XR ---
EXAMINATION TYPE: XR lumbar spine with bend/flex DATE OF EXAM: 08/15/2024 12:25 PM COMPARISON: None CLINICAL INDICATION: Male, 74 years old with history of M48.062,M54.16,M48.061; PHH, pain TECHNIQUE: XR lumbar spine with bend/flex - Frontal, lateral and coned in L5-S1 lateral views of the spine. Additional bending and flexion views. FINDINGS: No evidence of any acute osseous pathology. No evidence of loss of vertebral body height i s seen. There is grade 1 anterolisthesis of L4 on L5 alignment of the lumbar vertebral bodies. Scatte red disc space narrowing. Multilevel marginal osteophyte formation throughout the visualized spine. T here is facet joint arthropathy throughout the spine. Scattered at least mild neural foraminal stenos is. Distention view demonstrating increased lordosis of the spine lateral flexion view demonstrates m ild straightening of the spine. Atherosclerosis of the arterial vasculature. IMPRESSION: 1. No acute fracture. 2. Moderate multilevel disc degeneration. 3. Grade 1 anterolisthesis of L4 and L5. [facility], , 08/15/2024 12:57 PM
== END | disposition home or self-care (01) ==
LOC: RADCTMAIN 11:59
PROVIDERS: ATTEND Neurological Surgery
DX: M48.062 Spinal stenosis, lumbar region with neurogenic claudication (principal); M51.16 Intervertebral disc disorders with radiculopathy, lumbar region; M43.16 Spondylolisthesis, lumbar region
CPT/HCPCS: 72114; 72131

== ENCOUNTER 2024-08-16 07:12 | Day surgery (SDC) | payer MEDICARE, OTHER ==
[2024-08-07 12:07] VITALS: BMI 26.4
[~2024-08-16 07:12] MED LIST changes: +CYCLOPENTOLATE 1% OPHTH SOLN 2 ML BTL OP PRN; -HYDROmorphone 0.5 MG/0.5 ML SYRINGE IVP PRN; -LACTATED RINGERS 1,000 ML IV SCH; +MOXIFLOXACIN HCL 0.5% DROPS 3 ML BTL OP PRN; +PHENYLEPHRINE 2.5% OPHTH DRP 2ML OP PRN; +TETRACAINE 0.5% OPHTH (PF) DROPS 4 ML BTL OP PRN; +TIMOLOL 0.5% OPHTH DROPS 5 ML BTL OP PRN
[2024-08-16] MEDS ORDERED: LACTATED RINGERS 1,000 ML IV SCH (07:49)
[2024-08-16] MEDS: CYCLOPENTOLATE 1% OPHTH SOLN 2 ML BTL OP PRN (07:50)
[2024-08-16] MEDS: PHENYLEPHRINE 2.5% OPHTH DRP 2ML OP PRN (07:53)
[2024-08-16] MEDS: IV FLUID CONTINUATION 1,000 ML IV ONE ×2 (08:02)
[2024-08-16] MEDS: LACTATED RINGERS 1,000 ML IV SCH (08:03)
[2024-08-16 08:08] VITALS: TEMP 98.2
[2024-08-16] MEDS ORDERED: fentaNYL (PF) 50 MCG/ML 2 ML AMP ONE (08:24)
[2024-08-16] MEDS ORDERED: MIDAZOLAM 2 MG/2 ML VIAL ONE (08:24)
[2024-08-16] MEDS: BALANCED SALT IRRIG SOLN COMB2 15 ML IRRIG.SOLN INTRAOCULA ONE (08:46)
[2024-08-16] MEDS: LIDOCAINE 1% (PF) 10MG/ML VIAL MISCELLANE ONE (08:47)
[2024-08-16] MEDS: TRYPAN BLUE 0.06% SYRINGE 0.5 ML SYRINGE INTRAOCULA ONE (08:47)
[2024-08-16] MEDS: MOXIFLOXACIN HCL 0.5% DROPS 3 ML BTL OP PRN (08:47)
[2024-08-16] MEDS: DUOVISC KIT (GREEN BOX) INTRAOCULA ONE (08:47)
[2024-08-16] MEDS: TIMOLOL 0.5% OPHTH DROPS 5 ML BTL OP PRN (08:48)
[2024-08-16] MEDS: EPINEPHrine (PF) 0.3 ML in BALANCED SALT IRRIG SOLN COMB2 500 ML IRRIGATION ONE (08:48)
--- NOTE | 2024-08-16 09:08 | P.OP ---
Date of Procedure: 08/16/24 Preoperative Diagnosis: NS & POAG mild stage Postoperative Diagnosis: same Procedure(s) Performed: PIOL, OS Implants: [id number] 18.00 Anesthesia: MAC Surgeon: Trevor Rascon Pathology: none sent Condition: stable Disposition: same day Indications for Procedure: BLURRY VISION AND GLAUCOMA CONTROL Operative Findings: no complications
[2024-08-16 09:46] VITALS: BP 163/97; PULSE 65; RESP 17
--- NOTE | 2024-08-17 00:01 | OP ---
OPERATIVE REPORT DATE OF SERVICE : 08/16/2024 PROCEDURES PERFORMED: Phacoemulsification of cataract with lens implantation of the left eye with a Hydrus stent implantation of the left eye. PREOPERATIVE DIAGNOSES: Nuclear sclerosis and primary open-angle glaucoma, mild stage. POSTOPERATIVE DIAGNOSES: Nuclear sclerosis and primary open-angle glaucoma, mild stage. ANESTHESIA: Topical. ESTIMATED BLOOD LOSS: None. SPECIMENS TAKEN: None. NARRATIVE: After obtaining the appropriate consent, the patient was brought into the operating room and there, he was placed under cardiac monitoring and prepped and draped in the usual sterile manner. He was approached from his left temporal side, using an MVR blade at the 5 o'clock position, creating an opening into the anterior chamber. An additional paracentesis was created at about the 6 o'clock position, somewhat more tangential to the limbus of the eye through the 5 o'clock position. A solution of 2% lidocaine MPF with balanced salt solution in a 50:50 mix was injected into the anterior chamber. This was then followed by Trypan blue, which was allowed to dwell in the eye for about 90 seconds and the Trypan blue was irrigated away with balanced salt solution and the anterior chamber was then stabilized using Viscoat. The patient was then asked to rotate his head approximately 45 degrees to his right and maintain a gaze in the general direction. A small amount of Viscoat was placed on the patient's cornea and a gonioprism was placed on the eye to better illustrate the anterior chamber angle. Using the Hydrus stent injection device, it was advanced through the 6 o'clock paracentesis towards the nasal trabecular meshwork without any difficulty. A small incision was made through the TM and the device itself was advanced in the Schlemm's canal without any difficulty and released from the insertion instrument with a small amount of the trailing device present in the anterior chamber. A small amount of hemorrhage was realized once placement of the device was in the anterior chamber. The insertion device was removed, and the patient was then rotated back to the normal supine position and at the 2:30 position, a 2.5 mm keratome was used to create a self- sealing corneal flap incision. Through this opening, a cystotome was introduced to begin a continuous tear capsulorrhexis, which was completed using the Utrata forceps. Hydrodissection and hydrodelineation of the lens were accomplished with balanced salt solution. Phacoemulsification lens utilizing phaco chop was accomplished in 5.73 seconds at 11.5% power. Additional Xylocaine MPF was instilled into the anterior chamber. This was followed by removal of the remaining cortical material under irrigation and aspiration as well as careful polishing of the posterior capsule in the capsule vacuum mode. Provisc was then used to stabilize the capsular bag and a Husam and Husam model DCB00, 18.0 diopter posterior chamber intraocular lens was then injected into the capsular bag without difficulty. The remaining viscoelastic was removed from in and around the intraocular lens, and the eye was then brought to normal intraocular pressure through the paracentesis port. All wounds were confirmed watertight, and a small amount of additional balanced salt solution was used to raise the intraocular pressure of the eye, slightly above 25 mmHg. The patient then received 2 drops of 0.5% timolol, followed by 2 drops of moxifloxacin. He was then lightly patched and shielded in the usual manner. There were no complications from the procedure. He tolerated the procedure well and was returned to outpatient recovery in good condition. MMLASHONDAL / IJN: [id number] /
== END 2024-08-16 09:48 | disposition home or self-care (01) ==
LOC: OR 07:12
PROVIDERS: ATTEND Ophthalmology
DX: H25.12 Age-related nuclear cataract, left eye (principal); H40.1131 Primary open-angle glaucoma, bilateral, mild stage; I10 Essential (primary) hypertension
CPT/HCPCS: 66991; C1783; V2632; J2250; J0171; J3010; J2003

== ENCOUNTER → 2024-08-21 | Outpatient (CLI) | payer MEDICARE, OTHER ==
[2024-08-21 12:56] VITALS: BP 156/92; PULSE 61; RESP 16; TEMP 97.1
--- NOTE | 2024-08-21 14:48 | P.PAINPG ---
PQRS Measure Charge Sheet Comment: HISTORY OF PRESENT ILLNESS: A 73 yr old male presents today w severe and chronic LBP > 1 yr secondary to radiculopathy, spondylosis and facet arthropathy without myelopathy for evaluation. Pt states pain level is provoked at 2-8 /10 in intensity, constant, localized in the lower lumbar spine, predominantly axial, dull in character w occasional shooting pain towards the BL hips. Pain is provoked by sitting for periods > 20 min. Pain is alleviated by PT x 5 wks which ended in Feb 2024, physician guided home exercises5 times weekly since Feb 2024, chiropractic treatments x 10 wks which ended in Nov 2023, ice, medications, home traction, repositioning and rest . Interventional procedures include BL TFESI L4-L5 x1 Medications include Diclofenac, Ibu REVIEW OF ORGAN SYSTEMS: CONSTITUTIONAL: No fevers or chills. No recent weight loss. NEUROLOGICAL: + numbness and tingling along the distal extremities. No seizure disorders or headaches. MUSCULOSKELETAL: + pain PSYCHIATRIC: Denies current depression or suicidal thoughts. Physical Examinations : Constitutional : Cooperative , not in acute distress . Neurologic : Cranial nerve II to XII intact. No focal neurological deficits. Psychiatric : alert & oriented x 3. Matching mood & appropriate affect. Judgment & insight intact. Musculoskeletal : Cervical Spine Motor strength in the deltoid and biceps: Normal right side. Normal Left side Motor strength biceps and the wrist extensors: Normal right side . Normal left side Motor strength in the triceps muscle: Normal right side. Normal left side Deep tendon reflexes: Normal at the biceps. Normal at Brachioradialis. Normal at triceps Vertebral body tenderness to deep palpation over Cervical facet loading test: positive bilaterally Spurling test: positive bilaterally Neck distraction test: positive bilaterally Jeannine sign: positive bilaterally Lumbar spine Motor strength lower extremities ,thigh and legs 5/5 Right side , 5/5 Left side Deep tendon reflexes : Normal Knee Jerk. Normal Ankle Jerk Vertebral body tenderness over L5 Reynolds Test positive BL L4-L5 Lumbar facet Loading Test: positive Right / positive Left Range of motion of the lumbar spine Flexion 30 degrees, extension 10 degrees Straight Leg Raise test: Left/ Right positive at degrees Adebayo test: positive right / positive left. Severe tenderness over the Sacroiliac joint on the Right / Left sides Gaenslen test: positive bilaterally Seated flexion test: positive bilaterally. Sacral spine : Severe tenderness over the Sacroiliac joint: right side / left side Range of motion: Flexion of the lumbar spine <60 degrees Range of motion: Extension of the lumbar spine <20 degrees Gaenslen's Test positive Adebayo test: positive right side / left side Thigh Thrust Test Sacral Thrust Test Imaging: MRI non contrast lumbar spine from 03/31/24 reviewed Assessment/ Plan : Lumbar radiculopathy Recommendation of BL TFESI L4-L5 #2. Risks, benefits of procedure discussed and pt verbalized understanding. Protocol for discontinuation/ continuation of medications anton procedure discussed. All questions answered. I have spent greater than 30 minutes on patient care today. Dr Mccormick was available by phone for the evaluation of this patient. The time was used to review the medical records including relevant urine studies and Prescription history (MAPs), review of the available imaging, evaluation and examination of the patient, coordination of care with the medical staff and if applicable referring physicians, as well as creation of the medical record PQRS Narrative: Narcotic Agreement Date Signed 06/14/24 Hx Alcohol Use (MH) No Home Medications: Ambulatory Orders Mesalamine 5 gm PO [id number] 03/17/22 amLODIPine [Norvasc] 10 mg PO DAILY 03/17/22 Bimatoprost [Lumigan 0.01% Ophth Soln] 1 drop BOTH EYES HS 06/18/23 Fluticasone Propion/Salmeterol [Advair Hfa 45-21 Mcg Inhaler] 2 puff INHALATION RT-DAILY 12/23/23 Albuterol Inhaler [Ventolin Hfa Inhaler] 1 - 2 puff INHALATION Q6H PRN 08/07/24 Diclofenac Sodium [Voltaren] 75 mg PO BID 08/07/24 Fluticasone/Vilanterol [Breo Ellipta 100-25 Mcg Inhalr] 1 each INHALATION DIRECTED 08/07/24 [place]-3/Dha/Epa/Fish Oil [Fish Oil 1,000 mg Softgel] 1 each PO DAILY 08/07/24 Tobramycin [Tobramycin 0.3% Ophth Soln] 1 drop LEFT EYE DIRECTED 08/07/24 Triamcinolone 0.1% Cream [Kenalog 0.1% Cream] 1 drop LEFT EYE DIRECTED 08/07/24 Vitamin E Mixed [Vitamin E] 1,000 unit PO DAILY 08/07/24 Controlled Substance Measures - Controlled Substance Measures Is patient prescribed a controlled substance at discharge?: No
== END ==
LOC: PNWHC3 12:24
PROVIDERS: ATTEND Specialist
DX: M54.16 Radiculopathy, lumbar region (principal); Z88.1 Allergy status to other antibiotic agents; Z88.8 Allergy status to other drugs, medicaments and biological substances
CPT/HCPCS: 99211

== ENCOUNTER 2024-08-23 08:04 | Day surgery (SDC) | payer MEDICARE, OTHER ==
[2024-08-18 15:58] VITALS: BMI 27.1
[~2024-08-23 08:04] MED LIST changes: -CYCLOPENTOLATE 1% OPHTH SOLN 2 ML BTL OP PRN; -MOXIFLOXACIN HCL 0.5% DROPS 3 ML BTL OP PRN; -PHENYLEPHRINE 2.5% OPHTH DRP 2ML OP PRN; -TIMOLOL 0.5% OPHTH DROPS 5 ML BTL OP PRN
[2024-08-23] MEDS ORDERED: LACTATED RINGERS 1,000 ML IV SCH (08:17)
[2024-08-23] MEDS: CYCLOPENTOLATE 1% OPHTH SOLN 2 ML BTL OP PRN (08:30)
[2024-08-23] MEDS: PHENYLEPHRINE 2.5% OPHTH DRP 2ML OP PRN (08:35)
[2024-08-23 08:41] VITALS: TEMP 98
[2024-08-23] MEDS: LACTATED RINGERS 1,000 ML IV ONE (08:43)
[2024-08-23] MEDS ORDERED: MIDAZOLAM 2 MG/2 ML VIAL ONE (09:58)
[2024-08-23] MEDS ORDERED: fentaNYL (PF) 50 MCG/ML 2 ML AMP ONE (09:58)
[2024-08-23] MEDS: EPINEPHrine (PF) 0.3 ML in BALANCED SALT IRRIG SOLN COMB2 500 ML IRRIGATION ONE (10:13)
[2024-08-23] MEDS: DUOVISC KIT (GREEN BOX) INTRAOCULA ONE (10:24)
[2024-08-23] MEDS: LIDOCAINE 1% (PF) 10MG/ML VIAL SQ ONE (10:24)
[2024-08-23] MEDS: BALANCED SALT IRRIG SOLN COMB2 15 ML IRRIG.SOLN INTRAOCULA ONE (10:24)
[2024-08-23] MEDS: MOXIFLOXACIN HCL 0.5% DROPS 3 ML BTL OP PRN (10:25)
[2024-08-23] MEDS: TIMOLOL 0.5% OPHTH DROPS 5 ML BTL OP PRN (10:25)
--- NOTE | 2024-08-23 10:48 | P.OP ---
Date of Procedure: 08/23/24 Preoperative Diagnosis: NS & POAG Postoperative Diagnosis: same Procedure(s) Performed: PIOL & Hydrus Stent, OD Implants: [id number] 16.50 Anesthesia: MAC Surgeon: Trevor Rascon Pathology: none sent Condition: stable Disposition: same day Indications for Procedure: blurry vision and glc control Operative Findings: no complicatinos
[2024-08-23] MEDS: ONDANSETRON 4 MG/2 ML VIAL IVP STA (11:01)
[2024-08-23 11:51] VITALS: BP 150/76; PULSE 70; RESP 16
--- NOTE | 2024-08-23 21:42 | OP ---
OPERATIVE REPORT DATE OF SERVICE : 08/23/2024 PROCEDURES PERFORMED: Phacoemulsification of cataract and intraocular lens implant of the right eye with a Hydrus stent implantation of the right eye. PREOPERATIVE DIAGNOSES: Nuclear sclerosis and primary open-angle glaucoma, mild stage. ANESTHESIA: Topical. ESTIMATED BLOOD LOSS: None. SPECIMEN TAKEN: None. NARRATIVE: After obtaining the appropriate consent, the patient was brought into the operating room. There, he was placed under cardiac monitoring and prepped and draped in the usual sterile manner. He was approached from his right temporal side, and at the 11 o'clock position, an MVR blade was used to create a paracentesis port. An additional MVR blade more tangential to the limbus of the cornea was made at approximately 6 to 6:30 on the eye. The eye was infiltrated with 1% lidocaine MPF 50:50 mix with balanced salt solution. This was followed by installation of Trypan blue, which stayed in the eye for 90 seconds. After 90 seconds, the Trypan blue was irrigated away with balanced salt solution and the anterior chamber was then stabilized using Viscoat. The patient was then asked to rotate the head approximately 45 degrees to the left while maintaining a gaze in the general direction. Additional Viscoat was placed on the patient's cornea and a gonioprism was placed on the eye to identify the trabecular meshwork. Using a Hydrus stent, the device was advanced across the anterior chamber to impact the nasal trabecular meshwork. Careful advancement of the stenting device entered Schlemm's canal without any difficulty and was advanced for its entire length without difficulty. The trailing end of the Hydrus device was advanced slightly further, leaving a small amount present in the anterior chamber. The patient was then asked to rotate back to the normal supine position, where a 2.5 mm keratome was used to create a self-sealing corneal flap incision at the 9 o'clock position. A cystotome was then introduced to begin a continuous tear capsulorrhexis which was then completed using the Utrata forceps. Hydrodissection and hydrodelineation of the lens were accomplished with the balanced salt solution. Phacoemulsification lens utilizing phaco chop was accomplished at 12.11 seconds at 14.3% power. Additional Xylocaine MPF was instilled into the anterior chamber. This was followed by removal of the remaining cortical material under irrigation and aspiration as well as careful polishing of the posterior capsule in a capsule vacuum mode. Provisc was then used to stabilize the capsular bag and a Husam and Husam DCP00 16.5 diopter posterior chamber intraocular lens was then inserted into the capsular bag without difficulty. The remaining viscoelastic was removed from in and around the intraocular lens as well as the anterior chamber. The eye was then brought to slightly above normal intraocular pressure through the paracentesis port while confirming all wounds were watertight. He then received 2 drops of 0.5% timolol, followed by 2 drops of 0.5% moxifloxacin. He was then lightly patched and shielded in the usual manner. There were no complications from the procedure. He tolerated the procedure well and was returned to outpatient recovery in good condition. MMODL / IJN: [id number] /
== END 2024-08-23 11:51 | disposition home or self-care (01) ==
LOC: OR 08:04
PROVIDERS: ATTEND Ophthalmology
DX: H25.11 Age-related nuclear cataract, right eye (principal); H40.1131 Primary open-angle glaucoma, bilateral, mild stage; H52.13 Myopia, bilateral; H52.223 Regular astigmatism, bilateral; H52.4 Presbyopia; K51.90 Ulcerative colitis, unspecified, without complications; J45.909 Unspecified asthma, uncomplicated; I10 Essential (primary) hypertension; Z96.1 Presence of intraocular lens; Z48.810 Encounter for surgical aftercare following surgery on the sense organs; Z98.49 Cataract extraction status, unspecified eye; Z90.49 Acquired absence of other specified parts of digestive tract; Z89.119 Acquired absence of unspecified hand; Z88.1 Allergy status to other antibiotic agents; Z91.040 Latex allergy status; Z88.8 Allergy status to other drugs, medicaments and biological substances; Z79.899 Other long term (current) drug therapy
CPT/HCPCS: 66991; C1783; V2632; J2250; J2405; J0171; J3010; J2003

== ENCOUNTER 2024-09-07 10:14 | Day surgery (SDC) | payer MEDICARE, OTHER ==
[2024-09-07] MEDS ORDERED: LACTATED RINGERS 1,000 ML IV SCH (10:43)
[2024-09-07 10:52] VITALS: TEMP 97
[2024-09-07] MEDS ORDERED: DEXAMETHASONE SOD PHOSPHATE 10 MG/ML 1 ML VIAL ONE (11:43)
[2024-09-07] MEDS ORDERED: IOPAMIDOL M300 15ML VIAL ONE (11:43)
--- NOTE | 2024-09-07 12:10 | P.PCN ---
Description of Procedure: PREOPERATIVE DIAGNOSIS: 1-Lumbar radiculopathy . 2-lumbar degenerative disc disease. 3-lumbar spondylosis with lumbar facet arthropathy without myelopathy POSTOPERATIVE DIAGNOSIS: 1-lumbar radiculopathy. 2-lumbar degenerative disc disease. 3-lumbar spondylosis with facet arthropathy without myelopathy PROCEDURE 1. Transforaminal epidural steroid injection under fluoroscopic guidance at BILATERAL L4-5 level. (Fluoroscopy images stored on file in the radiology Department ) 2. Lumbar epidurogram . ANESTHESIA: Local with 1% lidocaine 5 ml. subcutaneously. Continuous pulse ox, EKG, blood pressure and verbal communication was maintained with the patient. EBL: Minimal PROCEDURE INDICATION: The patient with low back pain and radiculopathy symptoms unresponsive to conservative treatment. The patient was seen and identified in the preoperative area. Risks, benefits, complications, and alternatives were discussed with the patient. The patient agreed to proceed with the procedure and signed the consent. IV was started, and vital signs were stable. PROCEDURE DESCRIPTION / TECHNIQUE: After getting consent, patient was taken to the OR and time out was completed. The patient was placed in the prone position on procedure table and a pillow was placed under the abdomen to reduce lumbar lordosis. The lumbosacral area w as prepped and draped in the usual sterile fashion. Critical pause was taken. After injecting 5 mL of plain 1% lidocaine subcutaneously, under oblique view of the fluoroscope, a 22-gauge spinal needle was introduced under the tunnel view of the fluoroscope on the RIGHT side and the needle was advanced so that the tip of the needle was at the posterior inferior quadrant of the intervertebral fora men at the lateral view of the fluoroscope and in the lateral third of the facet column in the AP view of the fluoroscope. Negative CSF, negative blood, negative paresthesia. After needle position confirmation by AP and cross table lateral view, 3 mL of Isovue-M 200 contrast was injected under continuous fluoroscope. No contrast was noted in the intrathecal or intravascular space. The epidurogram was noted. Again after repeated negative aspiration 2.5 mL solution was injected which consists 1 mL of normal saline mixed with 1.5 mL of 15 mg dexamethasone. Needle was removed . Same procedure was repeated at the LEFT side at same level , using contrast under continuous fluoroscopy and using same amount of dexamethasone. At the end of the procedure, skin was cleansed, and bandages were applied. DISPOSITION / PLANS: No complication. The patient tolerated the procedure well. The patient was placed in a supine position and transferred to the recovery area in a stable condition for observation. There was no evidence of lower extremity motor or sensory deficit after the procedure. Patient was discharged from the recovery room after meeting discharge criteria. Home discharge instruc tions were given to the patient by the staff. The patient was reexamined prior to discharge.
[2024-09-07 12:19] VITALS: PULSE 61; RESP 16
--- NOTE | 2024-09-07 12:22 | FL ---
Fluoroscopy INDICATION: Pain FINDINGS: Fluoroscopy time: 94.9 seconds. Total dose area product (DAP) in uGy*m?, mGy*cm? (or similar): 0.22378 Images obtained: 5. Images document needle was directed towards the lumbar spine level IMPRESSION: 1. Documentation of fluoroscopy. [facility], , 09/07/2024 12:19 PM
[2024-09-07 12:30] VITALS: BP 144/88
== END 2024-09-07 12:35 | disposition home or self-care (01) ==
LOC: ORPAIN 10:14
PROVIDERS: ATTEND Pain Medicine Interventional Pain Medicine
DX: M47.26 Other spondylosis with radiculopathy, lumbar region (principal); M51.16 Intervertebral disc disorders with radiculopathy, lumbar region
CPT/HCPCS: 64483; J1100; Q9967

== ENCOUNTER → 2024-10-02 | Outpatient (CLI) | payer MEDICARE, OTHER ==
[2024-10-02 12:55] VITALS: BP 158/87; PULSE 70; RESP 15
--- NOTE | 2024-10-02 16:38 | P.PAINPG ---
PQRS Measure Charge Sheet Comment: HISTORY OF PRESENT ILLNESS: A 74 yr old male presents today w severe and chronic LBP > 1 yr secondary to radiculopathy, spondylosis and facet arthropathy without myelopathy for evaluation s/p BL TFESI L4-L5 #2. Pt states he experienced 50 % pain relief x 3 wks s/p procedure. Pt states pain level is provoked at 1-2 /10 in intensity, constant, localized in the lower lumbar spine, predominantly axial, dull in character w occasional shooting pain towards the BL hips. Pain is provoked by sitting for periods > 20 min. Pain is alleviated by PT x 5 wks which ended in Feb 2024, physician guided home exercises5 times weekly since Feb 2024, chiropractic treatments x 10 wks which ended in Nov 2023, ice, medications, home traction, repositioning and rest . Interventional procedures include BL TFESI L4-L5 x2 (09/22) Medications include Diclofenac, Ibu REVIEW OF ORGAN SYSTEMS: CONSTITUTIONAL: No fevers or chills. No recent weight loss. NEUROLOGICAL: + numbness and tingling along the distal extremities. No seizure disorders or headaches. MUSCULOSKELETAL: + pain PSYCHIATRIC: Denies current depression or suicidal thoughts. Physical Examinations : Constitutional : Cooperative , not in acute distress . Neurologic : Cranial nerve II to XII intact. No focal neurological deficits. Psychiatric : alert & oriented x 3. Matching mood & appropriate affect. Judgment & insight intact. Musculoskeletal : Cervical Spine Motor strength in the deltoid and biceps: Normal right side. Normal Left side Motor strength biceps and the wrist extensors: Normal right side . Normal left side Motor strength in the triceps muscle: Normal right side. Normal left side Deep tendon reflexes: Normal at the biceps. Normal at Brachioradialis. Normal at triceps Vertebral body tenderness to deep palpation over Cervical facet loading test: positive bilaterally Spurling test: positive bilaterally Neck distraction test: positive bilaterally Jeannine sign: positive bilaterally Lumbar spine Motor strength lower extremities ,thigh and legs 5/5 Right side , 5/5 Left side Deep tendon reflexes : Normal Knee Jerk. Normal Ankle Jerk Vertebral body tenderness over L5 Reynolds Test positive BL L4-L5 Lumbar facet Loading Test: positive Right / positive Left Range of motion of the lumbar spine Flexion 30 degrees, extension 10 degrees Straight Leg Raise test: Left/ Right positive at degrees Adebayo test: positive right / positive left. Severe tenderness over the Sacroiliac joint on the Right / Left sides Gaenslen test: positive bilaterally Seated flexion test: positive bilaterally. Sacral spine : Severe tenderness over the Sacroiliac joint: right side / left side Range of motion: Flexion of the lumbar spine <60 degrees Range of motion: Extension of the lumbar spine <20 degrees Gaenslen's Test positive Adebayo test: positive right side / left side Thigh Thrust Test Sacral Thrust Test Imaging: MRI non contrast lumbar spine from 03/31/24 reviewed Assessment/ Plan : Lumbar radiculopathy Will manage residual pain and may RTC on an as needed basis. Is following up w orthopedic surgeons to explore additional treatment options. All questions answered. I have spent greater than 30 minutes on patient care today. Dr Mccormick was available by phone for the evaluation of this patient. The time was used to review the medical records including relevant urine studies and Prescription history (MAPs), review of the available imaging, evaluation and examination of the patient, coordination of care with the medical staff and if applicable referring physicians, as well as creation of the medical record - Pain Location Lower Back Non-Pharmacological Interventions: Ice Pharmacological Interventions: Medication PQRS Narrative: Narcotic Agreement Date Signed 06/14/24 Hx Alcohol Use (MH) No Home Medications: Ambulatory Orders Mesalamine 5 gm PO AC-BRKFST 03/17/22 amLODIPine [Norvasc] 10 mg PO DAILY 03/17/22 Fluticasone Propion/Salmeterol [Advair Hfa 45-21 Mcg Inhaler] 2 puff INHALATION RT-DAILY 12/23/23 Albuterol Inhaler [Ventolin Hfa Inhaler] 1 - 2 puff INHALATION Q6H PRN 08/07/24 Diclofenac Sodium [Voltaren] 75 mg PO BID 08/07/24 Fluticasone/Vilanterol [Breo Ellipta 100-25 Mcg Inhalr] 1 each INHALATION DIRECTED 08/07/24 [place]-3/Dha/Epa/Fish Oil [Fish Oil 1,000 mg Softgel] 1 each PO DAILY 08/07/24 Vitamin E Mixed [Vitamin E] 1,000 unit PO DAILY 08/07/24 Bimatoprost [Lumigan 0.01% Ophth Soln] 1 drop BOTH EYES HS 09/06/24 Brinzolamide [Brinzolamide 1% Ophth Susp] 1 drop BOTH EYES TID 09/06/24 Ketorolac 0.5% Ophth Soln [Acular 0.5%] 1 drops BOTH EYES BID 09/06/24 prednisoLONE ACETATE 1% OPHTH [Pred Forte 1%] 1 drops BOTH EYES BID 09/06/24 Controlled Substance Measures - Controlled Substance Measures Is patient prescribed a controlled substance at discharge?: No
== END ==
LOC: PNWHC3 12:39
PROVIDERS: ATTEND Specialist
DX: M47.26 Other spondylosis with radiculopathy, lumbar region (principal); Z88.1 Allergy status to other antibiotic agents; Z88.8 Allergy status to other drugs, medicaments and biological substances
CPT/HCPCS: 99211

== ENCOUNTER 2024-12-10 13:43 | Inpatient (IN) | payer MEDICARE, OTHER ==
--- NOTE | 2024-12-10 14:14 | ED ---
General Adult HPI - General Chief complaint: Weakness Stated complaint: Abd Pain Time Seen by Provider: 12/10/24 13:45 Source: patient, EMS, RN notes reviewed Mode of arrival: EMS Limitations: no limitations - History of Present Illness Initial comments: Patient is a 74-year-old male present to the emergency department with concerns for the past several days. Patient is worried about his Crohn's flaring up on him. Patient has had decreased appetite. Patient is worried he could have diarrhea however is not had it yet. Patient did have some difficulty swallowing that he attributes to swelling of his esophagus however states that has resolved now. Patient has been having some shortness of breath that he attributes to his COPD. Patient does admit that he feels anxious. - Related Data Home Medications Medication Instructions Recorded Confirmed Mesalamine 5 gm PO AC-BRKFST 03/17/22 09/06/24 amLODIPine [Norvasc] 10 mg PO DAILY 03/17/22 09/06/24 Fluticasone Propion/Salmeterol 2 puff INHALATION RT-DAILY 12/23/23 09/06/24 [Advair Hfa 45-21 Mcg Inhaler] Albuterol Inhaler [Ventolin Hfa 1 - 2 puff INHALATION Q6H PRN 08/07/24 09/06/24 Inhaler] Diclofenac Sodium [Voltaren] 75 mg PO BID 08/07/24 09/06/24 Fluticasone/Vilanterol [Breo 1 each INHALATION DIRECTED 08/07/24 09/06/24 Ellipta 100-25 Mcg Inhalr] [place]-3/Dha/Epa/Fish Oil [Fish Oil 1 each PO DAILY 08/07/24 09/06/24 1,000 mg Softgel] Vitamin E Mixed [Vitamin E] 1,000 unit PO DAILY 08/07/24 09/06/24 Bimatoprost [Lumigan 0.01% Ophth 1 drop BOTH EYES HS 09/06/24 09/06/24 Soln] Brinzolamide [Brinzolamide 1% 1 drop BOTH EYES TID 09/06/24 09/06/24 Ophth Susp] Ketorolac 0.5% Ophth Soln [Acular 1 drops BOTH EYES BID 09/06/24 09/06/24 0.5%] prednisoLONE ACETATE 1% OPHTH 1 drops BOTH EYES BID 09/06/24 09/06/24 [Pred Forte 1%] Allergies Allergy/AdvReac Type Severity Reaction Status Date / Time cephalexin [From Keflex] AdvReac Nausea & Verified 12/10/24 13:55 Vomiting ciprofloxacin AdvReac Nausea & Verified 12/10/24 13:55 Vomiting & Diarrhea clindamycin AdvReac Nausea & Verified 12/10/24 13:55 Vomiting & Diarrhea prednisone AdvReac doses Verified 12/10/24 13:55 higher than 10mg causes dizziness Tetracyclines AdvReac Nausea & Verified 12/10/24 13:55 Vomiting Review of Systems ROS Statement: Those systems with pertinent positive or pertinent negative responses have been documented in the HPI. ROS Other: All systems not noted in ROS Statement are negative. Constitutional: Denies: fever Eyes: Denies: eye pain Respiratory: Reports: as per HPI, dyspnea Gastrointestinal: Reports: as per HPI, abdominal pain, nausea Psychiatric: Reports: anxiety Past Medical History Past Medical History: Asthma, Cancer, COPD, Eye Disorder, Hypertension, Osteoarthritis (OA) Additional Past Medical History / Comment(s): GLAUCOMA-BILAT EYES, basal cell more than 10 yrs ago. ULCERATUVE COLITIS, had double vision for several seconds, mri showed none, TIA History of Any Multi-Drug Resistant Organisms: None Reported Past Surgical History: Hernia Repair, Tonsillectomy Additional Past Surgical History / Comment(s): COLONOSCOPY, rt hand removed a joint and replaced with cable, HERNIA X 4, joaquim cataracts removed in July 2024 Past Anesthesia/Blood Transfusion Reactions: No Reported Reaction Past Psychological History: No Psychological Hx Reported Smoking Status: Former smoker Past Alcohol Use History: Occasional Past Drug Use History: None Reported - Past Family History Mother Family Medical History: Chest Pain / Angina Father Additional Family Medical History / Comment(s): many health problems General Exam Limitations: no limitations General appearance: alert, in no apparent distress Head exam: Present: normocephalic Eye exam: Present: normal appearance Neck exam: Present: normal inspection Respiratory exam: Present: normal lung sounds bilaterally Cardiovascular Exam: Present: regular rate, normal rhythm GI/Abdominal exam: Present: soft. Absent: tenderness, pulsatile mass Extremities exam: Present: normal inspection. Absent: pedal edema, calf tenderness Neurological exam: Present: alert. Absent: motor sensory deficit Psychiatric exam: Present: normal affect, normal mood Skin exam: Present: normal color Course Vital Signs 12/10/24 12/10/24 12/10/24 13:44 15:31 15:44 Temperature 97.8 F Pulse Rate 69 88 90 Respiratory 22 Rate Blood Pressure 102/79 O2 Sat by Pulse 100 Oximetry 12/10/24 16:26 Temperature Pulse Rate 84 Respiratory 18 Rate Blood Pressure 119/77 O2 Sat by Pulse 97 Oximetry EKG Findings - EKG Results: EKG: interpreted by ERMD, sinus rhythm, normal axis, normal QRS, normal ST/T Medical Decision Making - Medical Decision Making Was pt. sent in by a medical professional or institution (, PA, BUNCH BREAKER, urgent care, hospital, or long-term...) When possible be specific @ -No Did you speak to anyone other than the patient for history (EMS, parent, family, police, friend...)? What history was obtained from this source @ -No Did you review nursing and triage notes (agree or disagree)? Why? @ -I reviewed and agree with nursing and triage notes Were old charts reviewed (outside hosp., previous admission, EMS record, old EKG, old radiological studies, urgent care reports/EKG's, long-term records)? Report findings @ -No old charts were reviewed Differential Diagnosis (chest pain, altered mental status, abdominal pain women, abdominal pain men, vaginal bleeding, weakness, fever, dyspnea, syncope, headache, dizziness, GI bleed, back pain, seizure, CVA, palpatations, mental health, musculoskeletal)? @ -Differential Dyspnea: Coronary syndrome, arrhythmia, tamponade, asthma, COPD, pulmonary embolism, pneumonia, pneumothorax, pulmonary effusion, anaphylaxis, diabetic ketoacidosis, flailed chest, pulmonary contusion, diaphragmatic rupture, anemia, neuromuscular , this is not meant to be an all-inclusive list. EKG interpreted by me (3pts min.). @ -As above X-rays interpreted by me (1pt min.). @ -Chest x-ray does not reveal acute abnormality CT interpreted by me (1pt min.). @ -CT chest without evidence of pulmonary embolism. Thoracic aorta up to 4 cm U/S interpreted by me (1pt. min.). @ -None done What testing was considered but not performed or refused? (CT, X-rays, U/S, labs)? Why? @ -None What meds were considered but not given or refused? Why? @ -None Did you discuss the management of the patient with other professionals (professionals i.e. , PA, BUNCH BREAKER, lab, RT, psych nurse, forensic social worker, exerciser horse, teacher, parole or probation officer, caser up)? Give summary @ -Case was discussed with Dr. Jo who will admit covering Dr. Cabral Was smoking cessation discussed for >3mins.? @ -No Was critical care preformed (if so, how long)? @ -No Were there social determinants of health that impacted care today? How? (Homelessness, low income, unemployed, alcoholism, drug addiction, transportation, low edu. Level, literacy, decrease access to med. care, usp, rehab)? @ -No Was there de-escalation of care discussed even if they declined (Discuss DNR or withdrawal of care, Hospice)? DNR status @ -No What co-morbidities impacted this encounter? (DM, HTN, Smoking, COPD, CAD, Cancer, CVA, ARF, Chemo, Hep., AIDS, mental health diagnosis, sleep apnea, morbid obesity)? @ -None Was patient admitted / discharged? Hospital course, mention meds given and route, prescriptions, significant lab abnormalities, going to OR and other pertinent info. @ -Patient presents with multiple symptoms including concerns for his Crohn's disease as well as dyspnea. Evaluation with elevated troponin. On reevaluation patient does not have any specific recall of chest discomfort but states his ribs were sore from the weather. Patient will be admitted and heparinized with cardiac consult. Patient was reevaluated and updated. Admission orders were written. Undiagnosed new problem with uncertain prognosis? @ -No Drug Therapy requiring intensive monitoring for toxicity (Heparin, Nitro, Insulin, Cardizem)? @ -No Were any procedures done? @ -No Diagnosis/symptom? @ -Dyspnea Acute, or Chronic, or Acute on Chronic? @ -Acute Uncomplicated (without systemic symptoms) or Complicated (systemic symptoms)? @ -Complicated with elevated troponin Side effects of treatment? @ -No Exacerbation, Progression, or Severe Exacerbation? @ -No Poses a threat to life or bodily function? How? (Chest pain, USA, CT, pneumonia, PE, COPD, DKA, ARF, appy, cholecystitis, CVA, Diverticulitis, Homicidal, Suicidal, threat to staff... and all critical care pts) @ -Threat to cardiac function - Lab Data Result diagrams: 12/10/24 14:08 12/10/24 14:08 Lab Results 12/10/24 12/10/24 12/10/24 Range/Units 14:08 14:08 14:08 WBC 10.18 H (4.50-10.00) 10*3/uL RBC 3.50 L (4.40-5.60) 10*6/uL Hgb 12.5 L (13.0-17.0) g/dL Hct 34.9 L (39.6-50.0) % MCV 99.7 H (80.0-97.0) fL MCH 35.7 H (27.0-32.0) pg MCHC 35.8 (32.0-37.0) g/dL Plt Count 190 (140-440) 10*3/uL MPV 9.4 L (9.5-12.2) fL Immature Gran % (Auto) 0.4 % Neutrophils % 74.2 % Lymphocytes % 16.5 % Monocytes % 8.1 % Eosinophils % 0.6 % Basophils % 0.2 % Immature Gran # 0.04 (0.00-0.04) 10*3/uL Neutrophils # 7.56 (1.80-7.70) 10*3/uL Lymphocytes # 1.68 (0.90-5.00) 10*3/uL Monocytes # 0.82 (0.20-1.00) 10*3/uL Eosinophils # 0.06 (0.04-0.35) 10*3/uL Basophils # 0.02 (0.00-0.10) 10*3/uL PT 12.3 (10.0-12.5) sec INR 1.1 (<1.2) APTT 20.7 L (22.0-30.0) sec D-Dimer 0.89 H (<0.60) mg/L FEU Sodium 139 (137-145) mmol/L Potassium 4.6 (3.5-5.1) mmol/L Chloride 107 (98-107) mmol/L Carbon Dioxide 17 L (22-30) mmol/L Anion Gap 15 mmol/L BUN 51 H (9-20) mg/dL Creatinine 1.39 H (0.66-1.25) mg/dL Est GFR (CKD-EPI)AfAm 58 (>60 ml/min/1.73 sqM) Est GFR (CKD-EPI)NonAf 50 (>60 ml/min/1.73 sqM) Glucose 115 H (74-99) mg/dL Calcium 9.5 (8.4-10.2) mg/dL Total Bilirubin 2.0 H (0.2-1.3) mg/dL AST 118 H (17-59) U/L ALT 88 H (4-49) U/L Alkaline Phosphatase 56 (38-126) U/L Troponin I (0.000-0.034) ng/mL Total Protein 6.7 (6.3-8.2) g/dL Albumin 4.2 (3.5-5.0) g/dL Amylase 46 (30-110) U/L Lipase 128 (23-300) U/L 07/13/25 Range/Units 14:08 WBC (4.50-10.00) 10*3/uL RBC (4.40-5.60) 10*6/uL Hgb (13.0-17.0) g/dL Hct (39.6-50.0) % MCV (80.0-97.0) fL MCH (27.0-32.0) pg MCHC (32.0-37.0) g/dL Plt Count (140-440) 10*3/uL MPV (9.5-12.2) fL Immature Gran % (Auto) % Neutrophils % % Lymphocytes % % Monocytes % % Eosinophils % % Basophils % % Immature Gran # (0.00-0.04) 10*3/uL Neutrophils # (1.80-7.70) 10*3/uL Lymphocytes # (0.90-5.00) 10*3/uL Monocytes # (0.20-1.00) 10*3/uL Eosinophils # (0.04-0.35) 10*3/uL Basophils # (0.00-0.10) 10*3/uL PT (10.0-12.5) sec INR (<1.2) APTT (22.0-30.0) sec D-Dimer (<0.60) mg/L FEU Sodium (137-145) mmol/L Potassium (3.5-5.1) mmol/L Chloride (98-107) mmol/L Carbon Dioxide (22-30) mmol/L Anion Gap mmol/L BUN (9-20) mg/dL Creatinine (0.66-1.25) mg/dL Est GFR (CKD-EPI)AfAm (>60 ml/min/1.73 sqM) Est GFR (CKD-EPI)NonAf (>60 ml/min/1.73 sqM) Glucose (74-99) mg/dL Calcium (8.4-10.2) mg/dL Total Bilirubin (0.2-1.3) mg/dL AST (17-59) U/L ALT (4-49) U/L Alkaline Phosphatase (38-126) U/L Troponin I 0.111 H* (0.000-0.034) ng/mL Total Protein (6.3-8.2) g/dL Albumin (3.5-5.0) g/dL Amylase (30-110) U/L Lipase (23-300) U/L Disposition Clinical Impression: Dyspnea Disposition: ADMITTED IP TO THIS HOSP Is patient prescribed a controlled substance at d/c from ED?: No Referrals: Ady Beavers MD [Primary Care Provider] - 1-2 days Time of Disposition: 17:55
[2024-12-10 14:16] LABS: Basophils # (A) 0.02 10*3/uL (0.00-0.10); Basophils % (A) 0.2 %; Eosinophils # (A) 0.06 10*3/uL (0.04-0.35); Eosinophils % (A) 0.6 %; HCT 34.9 % (39.6-50.0); HGB 12.5 g/dL (13.0-17.0); Lymphocytes # (A) 1.68 10*3/uL (0.90-5.00); Lymphocytes % (A) 16.5 %; MCH 35.7 pg (27.0-32.0); MCHC 35.8 g/dL (32.0-37.0); MCV 99.7 fL (80.0-97.0); Monocytes # (A) 0.82 10*3/uL (0.20-1.00); Monocytes % (A) 8.1 %; Neutrophils # (A) 7.56 10*3/uL (1.80-7.70); Neutrophils % (A) 74.2 %; Platelet Count 190 10*3/uL (140-440); RBC 3.50 10*6/uL (4.40-5.60); RDW 13.0 % (11.5-14.5); WBC 10.18 10*3/uL (4.50-10.00)
[2024-12-10] MEDS: SODIUM CHLORIDE 0.9% 1,000 ML IV SCH (14:21)
[2024-12-10] MEDS: ONDANSETRON 4 MG/2 ML VIAL IVP STA (14:22)
[2024-12-10] MEDS: LORazepam 1 MG/0.5 ML VIAL IV STA (14:22)
[2024-12-10] MEDS: FAMOTIDINE 20 MG/2 ML VIAL IV STA (14:22)
[2024-12-10 14:28] LABS: ALT 88 U/L (4-49); African American GFR (CKD) 58 (>60 ml/min/1.73 sqM); Albumin 4.2 g/dL (3.5-5.0); Amylase 46 U/L (30-110); Anion Gap 15 mmol/L; Blood Urea Nitrogen 51 mg/dL (9-20); Calcium 9.5 mg/dL (8.4-10.2); Carbon Dioxide 17 mmol/L (22-30); Chloride 107 mmol/L (98-107); Glucose 115 mg/dL (74-99); Lipase 128 U/L (23-300); Non-African American GFR(CKD) 50 (>60 ml/min/1.73 sqM); Sodium 139 mmol/L (137-145); Total Protein 6.7 g/dL (6.3-8.2)
[2024-12-10 14:31] LABS: AST 118 U/L (17-59); Alkaline Phosphatase 56 U/L (38-126); Potassium 4.6 mmol/L (3.5-5.1)
[2024-12-10 14:46] LABS: INR 1.1 (<1.2); Partial Thromboplastin Time 20.7 sec (22.0-30.0); Prothrombin Time 12.3 sec (10.0-12.5)
--- NOTE | 2024-12-10 15:09 | XR ---
EXAMINATION TYPE: XR chest 2V DATE OF EXAM: 12/10/2024 2:41 PM COMPARISON: Chest radiographs from12/22/2023 CLINICAL INDICATION: Male, 74 years old with history of abdominal pain; TECHNIQUE: XR chest 2V Frontal and lateral views of the chest. FINDINGS: Lungs/Pleura: There is no evidence of pleural effusion, focal consolidation, or pneumothorax. Pulmonary vascularity: Unremarkable. Heart/mediastinum: Cardiomediastinal silhouette is unremarkable. Musculoskeletal: No acute osseous pathology. IMPRESSION: No acute cardiopulmonary disease/process. [facility], , 12/10/2024 3:07 PM
[2024-12-10] MEDS: IPRATROPIUM-ALBUTEROL 3 ML NEB INHALATION STA (15:30)
--- NOTE | 2024-12-10 16:26 | CT ---
EXAMINATION TYPE: CT angio chest DATE OF EXAM: 12/10/2024 4:03 PM COMPARISON: Chest radiograph from same day. CLINICAL INDICATION: Male, 74 years old with history of juancho; Difficulty breathing, elevated D-dimer TECHNIQUE/CONTRAST: CTA scan of the thorax is performed with IV Contrast, patient injected with 80ml mL of Isovue 370, [place] P images are created and reviewed these are created on a separate workstation.. CT DLP: 309.6 mGycm, Automated exposure control for dose reduction was used. FINDINGS: Lungs/Pleura: No evidence of focal consolidation, pleural effusion or pneumothorax. . Right intrafiss ural lymph nodes are present. In left lower lobe calcified granuloma series 401 image 108. Scattered pleural thickening with calcifications. Airway: Large airways are patent. Heart: Size within normal limits. Moderate coronary artery calcifications present. Vasculature: Ascending thoracic aorta ectasia up to 40 mm. There is no evidence for a filling defect within the pulmonary vasculature to suggest acute pulmonary embolism. The pulmonary artery is of nor mal size. Mediastinum: No gross evidence of adenopathy. Small hiatal hernia present. Musculoskeletal: Mild disc degeneration changes are present throughout the thoracolumbar spine second abdoulaye to osteophyte formation and facet joint arthropathy. Soft Tissues/lymph nodes: Unremarkable. Lower neck: No significant findings. Upper Abdomen: Diffuse low-attenuation to the liver parenchyma. IMPRESSION: 1. No evidence of pulmonary embolism. 2. Ascending thoracic aorta ectasia up to 4.0 cm. 3. Moderate coronary artery atherosclerosis. 4. Hepatic steatosis. 5. Small hiatal hernia. 6. Scattered areas of pleural thickening with calcification correlate for history of asbestos exposu re. Consider yearly low-dose lung cancer screening. [facility], , 12/10/2024 4:24 PM
[2024-12-10] MEDS ORDERED: HEPARIN SODIUM 1,000 UN/ML (10ML VL) IV PRN (17:23)
[2024-12-10] MEDS: HEPARIN SODIUM 1,000 UN/ML (10ML VL) IV ONE (17:49)
[2024-12-10] MEDS: HEPARIN SOD,PORK IN 0.45% NACL 25,000 UNIT in 0.45% NACL 1 250ML.BAG IV SCH (17:50)
[2024-12-10] MEDS ORDERED: NALOXONE 0.4 MG/ML 1 ML VIAL IV PRN (17:55)
[2024-12-11 07:21] VITALS: RESP 18
[2024-12-11 07:36] LABS: Basophils # (A) 0.03 10*3/uL (0.00-0.10); Basophils % (A) 0.4 %; Eosinophils # (A) 0.23 10*3/uL (0.04-0.35); Eosinophils % (A) 3.3 %; HCT 29.5 % (39.6-50.0); HGB 10.3 g/dL (13.0-17.0); Lymphocytes # (A) 1.75 10*3/uL (0.90-5.00); Lymphocytes % (A) 25.0 %; MCH 35.8 pg (27.0-32.0); MCHC 34.9 g/dL (32.0-37.0); MCV 102.4 fL (80.0-97.0); Monocytes # (A) 0.56 10*3/uL (0.20-1.00); Monocytes % (A) 8.0 %; Neutrophils # (A) 4.41 10*3/uL (1.80-7.70); Neutrophils % (A) 62.9 %; Platelet Count 173 10*3/uL (140-440); RBC 2.88 10*6/uL (4.40-5.60); RDW 13.4 % (11.5-14.5); WBC 7.01 10*3/uL (4.50-10.00)
[2024-12-11 07:47] LABS: INR 1.2 (<1.2); Partial Thromboplastin Time 91.1 sec (22.0-30.0); Prothrombin Time 13.2 sec (10.0-12.5)
[2024-12-11] MEDS: PANTOPRAZOLE 40 MG/10 ML VIAL IV SCH (08:32)
[2024-12-11] MEDS ORDERED: amLODIPine 5 MG TAB PO PRN (10:14)
[2024-12-11] MEDS ORDERED: DICYCLOMINE 10 MG CAP PO PRN (10:14)
[2024-12-11] MEDS ORDERED: ALBUTEROL NEBULIZED 2.5 MG/3 ML INHALATION PRN (10:14)
--- NOTE | 2024-12-11 10:52 | P.CRDCN ---
History of Present Illness Consult date: 12/11/24 History of present illness: History of Present Illness: The patient is a 74-year-old male with a history of hypertension, ulcerative colitis who presents with symptoms of progressive fatigue, diarrhea, lower GI bleeding. He was in [place] visiting his nephew and had difficulty with his mesalamine pill subsequently decided to come back to [place] and while in [place] was not feeling well with some abdominal discomfort. He had to stay in [place] longer because of his truck not working and it was hot and humid and upon arrival to [place] he was not feeling well around came into the emergency room for further evaluation. 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 He has no chest discomfort or significant dyspnea. He denies any arrhythmia. He has no PND, orthopnea or peripheral edema. His troponin was mildly elevated and flat but he had evidence of renal function abnormalities. His EKG showed no acute ST segment changes. The patient consumes alcohol in the form of beer and a daily basis Medications: Amlodipine 5 mg as needed mesalamine Voltaren dicyclomine and albuterol, Review of Systems: Respiratory: No history of asthma, bronchitis or recent cough. GI: He has abdominal pain with diarrhea and GI bleeding related to the ulcerative colitis : No hematuria or dysuria. Nervous System: No stroke or seizure. Physical Examination: 74-year-old male, alert oriented no apparent distress,Blood pressure 102/70, Heart rate 60 Head: Normocephalic. Eyes: Sclerae nonicteric. Neck: Good carotid upstroke, no bruit, no jugular venous distention. Lungs: Clear to auscultation. Heart: Regular rate and rhythm, S1-S2, no S3, no rub. No murmur. Abdomen: Soft nontender, positive bowel sounds no organomegaly. Extremities: No edema, intact distal pulses. Labs: WBC 10.18, hemoglobin 12.5. BUN 51, creatinine 1.39. Troponin 0.11, 0.22, 0.14. AST 118, ALT 88, potassium 4.6. Chest x-ray with no acute infiltrate. CT angiogram of the chest no pulmonary embolism, ascending aorta 4.0 and moderate coronary artery atherosclerosis. EKG: Sinus mechanism normal axis early transition with early repolarization changes Impression: 1. Ulcerative colitis with diarrhea and GI bleeding 2. Troponin elevation most likely presenting type II event worsened by the acute renal failure 3. Acute kidney injury 4. Coronary artery calcification by CT scan with no high-grade stenosis by coronary angiography a year and a half ago 5. History of hypertension Plan: 1. Stop IV heparin 2. Obtain an echocardiogram with Doppler 3. Obtain prior result of the cardiac catheterization 4. GI consultation for the ulcerative colitis 5. Follow renal functions 6. Depending on his progress further recommendation will be made, thank you for this consult we will follow with you. Past Medical History Past Medical History: Asthma, Cancer, COPD, Eye Disorder, Hypertension, Osteoarthritis (OA) Additional Past Medical History / Comment(s): GLAUCOMA-BILAT EYES, basal cell more than 10 yrs ago. ULCERATUVE COLITIS, had double vision for several seconds, mri showed none, TIA History of Any Multi-Drug Resistant Organisms: None Reported Past Surgical History: Hernia Repair, Tonsillectomy Additional Past Surgical History / Comment(s): COLONOSCOPY, rt hand removed a joint and replaced with cable, HERNIA X 4, joaquim cataracts removed in July 2024 Past Anesthesia/Blood Transfusion Reactions: No Reported Reaction Past Psychological History: No Psychological Hx Reported Smoking Status: Former smoker Past Alcohol Use History: Occasional Past Drug Use History: None Reported - Past Family History Mother Family Medical History: Chest Pain / Angina Father Additional Family Medical History / Comment(s): many health problems Medications and Allergies Home Medications Medication Instructions Recorded Confirmed Type Mesalamine 4.8 gm PO DAILY 03/17/22 12/10/24 History amLODIPine [Norvasc] 5 mg PO BID PRN 03/17/22 12/10/24 History Albuterol Inhaler [Ventolin Hfa 2 puff INHALATION RT-Q4H PRN 08/07/24 12/10/24 History Inhaler] Diclofenac Sodium [Voltaren] 75 mg PO BID 08/07/24 12/10/24 History Diclofenac Sodium Gel [Voltaren 1% 1 applic TOPICAL QID PRN 12/10/24 12/10/24 History Gel] Dicyclomine [Bentyl] 10 mg PO TID PRN 12/10/24 12/10/24 History Ketoconazole 2% Shampoo [Nizoral] 1 applic TOPICAL DAILY PRN 12/10/24 12/10/24 History Allergies Allergy/AdvReac Type Severity Reaction Status Date / Time cephalexin [From Keflex] AdvReac Nausea & Verified 12/10/24 19:37 Vomiting ciprofloxacin AdvReac Nausea & Verified 12/10/24 19:37 Vomiting & Diarrhea clindamycin AdvReac Nausea & Verified 12/10/24 19:37 Vomiting & Diarrhea prednisone AdvReac doses Verified 12/10/24 19:37 higher than 10mg causes dizziness Tetracyclines AdvReac Nausea & Verified 12/10/24 19:37 Vomiting Physical Exam Vitals: Vital Signs Temp Pulse Resp BP Pulse Ox 12/11/24 07:17 67 18 102/68 96 12/11/24 05:57 97.5 F L 61 17 106/68 98 12/11/24 00:27 97.6 F 74 17 103/82 96 12/10/24 19:59 97.8 F 92 17 108/78 97 12/10/24 16:26 84 18 119/77 97 12/10/24 15:44 90 12/10/24 15:31 88 12/10/24 13:44 97.8 F 69 22 102/79 100 Intake and Output 12/10/24 12/11/24 12/11/24 22:59 06:59 14:59 Intake Total 68.5 Balance 68.5 Intake: Intake, IV Titration 68.5 Amount Heparin Sod,Pork in 0.45% 68.5 NaCl 25,000 unit In 0.45 % NaCl 1 250ml.bag @ 11. 917 UNITS/KG/HR 10 mls/hr IV .Q24H [facility] Rx#: [id number] Results 12/11/24 07:17 12/10/24 14:08 Cardiac Enzymes 12/10/24 12/10/24 12/10/24 Range/Units 14:08 14:08 18:24 AST 118 H (17-59) U/L Troponin I 0.111 H* 0.128 H* (0.000-0.034) ng/mL 12/10/24 Range/Units 23:03 AST (17-59) U/L Troponin I 0.140 H* (0.000-0.034) ng/mL Coagulation 12/10/24 12/10/24 12/11/24 Range/Units 14:08 23:03 07:17 PT 12.3 13.2 H (10.0-12.5) sec APTT 20.7 L 67.9 H 91.1 H (22.0-30.0) sec CBC 12/10/24 12/11/24 Range/Units 14:08 07:17 WBC 10.18 H 7.01 (4.50-10.00) 10*3/uL RBC 3.50 L 2.88 L (4.40-5.60) 10*6/uL Hgb 12.5 L 10.3 L (13.0-17.0) g/dL Hct 34.9 L 29.5 L (39.6-50.0) % Plt Count 190 173 (140-440) 10*3/uL Comprehensive Metabolic Panel 12/10/24 Range/Units 14:08 Sodium 139 (137-145) mmol/L Potassium 4.6 (3.5-5.1) mmol/L Chloride 107 (98-107) mmol/L Carbon Dioxide 17 L (22-30) mmol/L BUN 51 H (9-20) mg/dL Creatinine 1.39 H (0.66-1.25) mg/dL Glucose 115 H (74-99) mg/dL Calcium 9.5 (8.4-10.2) mg/dL AST 118 H (17-59) U/L ALT 88 H (4-49) U/L Alkaline Phosphatase 56 (38-126) U/L Total Protein 6.7 (6.3-8.2) g/dL Albumin 4.2 (3.5-5.0) g/dL Current Medications Generic Name Dose Route Start Last Admin Trade Name Freq PRN Reason Stop Dose Admin Albuterol Sulfate 2.5 mg 12/11/24 10:14 Albuterol Nebulized 2.5 Mg/3 Ml INHALATION RT-Q4H PRN Shortness Of Breath Balsalazide 2,250 mg 12/11/24 16:00 Balsalazide Disodium 750 Mg Capsule PO TID [facility] Dicyclomine HCl 10 mg 12/11/24 10:14 Dicyclomine 10 Mg Cap PO TID PRN GI Upset Sodium Chloride 1,000 mls @ 130 mls/hr 12/10/24 14:15 12/11/24 07:56 Saline 0.9% IV 130 mls/hr .Q7H42M [facility] Administration Naloxone HCl 0.2 mg 07/13/25 17:55 Naloxone 0.4 Mg/Ml 1 Ml Vial IV Q2M PRN Opioid Reversal Pantoprazole Sodium 40 mg 12/11/24 09:00 12/11/24 08:32 Pantoprazole 40 Mg/10 Ml Vial IV 40 mg DAILY HANK Administration Intake and Output 12/10/24 12/11/24 12/11/24 22:59 06:59 14:59 Intake Total 68.5 Balance 68.5 Intake: Intake, IV Titration 68.5 Amount Heparin Sod,Pork in 0.45% 68.5 NaCl 25,000 unit In 0.45 % NaCl 1 250ml.bag @ 11. 917 UNITS/KG/HR 10 mls/hr IV .Q24H [facility] Rx#: [id number] 12/11/24 07:17 12/10/24 14:08
--- NOTE | 2024-12-11 11:25 | P.HPIM ---
History of Present Illness H&P Date: 12/11/24 History of present illness; patient is 74-year-old gentleman past medical history significant for ulcerative colitis, COPD, hypertension presented to the ER for weakness and lethargy. Patient stated that for the last day he has not been feeling her usual self. Patient stated that bright red blood per rectum. Patient history of IBD and thinks that it was flaring up. Patient was complaining of decreasing appetite. There was no complaint of abdominal pain. Denies any altered bowel movements. There is no complaint of nausea or vomiting. Patient was complaining of shortness of breath. Shortness of breath was on exertion. Patient denies any chest pain. There was no complaint of orthopnea or PND. Patient denies any palpitation. Denies any nausea, vomiting abdominal pain. Patient denies any complaint of dizziness. There is no complaint of headache. Because of the symptoms, patient came to the ER Initial lab work done in the ER showed WBC 10.18, hemoglobin 12.5, platelet count 190, D-dimer 0.89, sodium 139, potassium 4.6, BUN 51, creatinine 1.39, glucose 115, total bilirubin 2.0 AST 118, ALT 88, troponin 0.111 EKG done in the ER showed heart rate of 66, no ST segment elevation or depression seen, no T-wave inversions seen. Chest x-ray done in the ER showed no acute cardiopulmonary CT head done showed no acute intracranial process CTA head and neck done showed no evidence of of dissection of the cervical internal carotid arteries or vertebral arteries, no evidence of significant stenosis at the carotid bifurcations, no evidence of intracranial high-grade stenosis or aneurysm CT chest PE protocol done showed no evidence of PE, ascending thoracic aorta ectasia up to 4 cm. Hepatic steatosis Patient admitted to internal medicine service REVIEW OF SYSTEMS: CONSTITUTIONAL: No fever, no malaise, no fatigue. HEENT: No recent visual problems or hearing problems. Denied any sore throat. CARDIOVASCULAR: No chest pain, orthopnea, PND, no palpitations, no syncope. PULMONARY: No shortness of breath, no cough, no hemoptysis. GASTROINTESTINAL: No diarrhea, no nausea, no vomiting, no abdominal pain. NEUROLOGICAL: No headaches, no weakness, no numbness. HEMATOLOGICAL: Denies any bleeding or petechiae. GENITOURINARY: Denies any burning micturition, frequency, or urgency. MUSCULOSKELETAL/RHEUMATOLOGICAL: Denies any joint pain, swelling, or any muscle pain. ENDOCRINE: Denies any polyuria or polydipsia. The rest of the 14-point review of systems is negative. PHYSICAL EXAMINATION: GENERAL: The patient is alert and oriented x3, not in any acute distress. Well developed, well nourished. HEENT: Pupils are round and equally reacting to light. EOMI. No scleral icterus. No conjunctival pallor. Normocephalic, atraumatic. No pharyngeal erythema. No thyromegaly. CARDIOVASCULAR: S1 and S2 present. No murmurs, rubs, or gallops. PULMONARY: Chest is clear to auscultation, no wheezing or crackles. ABDOMEN: Soft, nontender, nondistended, normoactive bowel sounds. No palpable organomegaly. MUSCULOSKELETAL: No joint swelling or deformity. EXTREMITIES: No cyanosis, clubbing, or pedal edema. NEUROLOGICAL: Gross neurological examination did not reveal any focal deficits. SKIN: No rashes. Assessment and plan NSTEMI Bleeding per rectum Diarrhea EDWARDO Acute transaminitis History of ulcerative colitis Monitor vital signs Monitor CBC Monitor CMP Continue telemetry monitoring Trend troponin Ordered 2D echo Ordered IV Protonix Ordered IV fluids Ordered antiemetics Consult cardiology Consult GI Labs and medication were reviewed.. Continue same treatment. Continue with symptomatic treatment. Resume home medication. Monitor labs and vitals. DVT a nd GI prophylaxis. Further recommendations as per clinical course of the patient Dictation was produced using [employer] dictation software. please excuse any grammatical, word or spelling errors. Past Medical History Past Medical History: Asthma, Cancer, COPD, Eye Disorder, Hypertension, Osteoarthritis (OA) Additional Past Medical History / Comment(s): GLAUCOMA-BILAT EYES, basal cell more than 10 yrs ago. ULCERATUVE COLITIS, had double vision for several seconds, mri showed none, TIA History of Any Multi-Drug Resistant Organisms: None Reported Past Surgical History: Hernia Repair, Tonsillectomy Additional Past Surgical History / Comment(s): COLONOSCOPY, rt hand removed a joint and replaced with cable, HERNIA X 4, joaquim cataracts removed in July 2024 Past Anesthesia/Blood Transfusion Reactions: No Reported Reaction Past Psychological History: No Psychological Hx Reported Smoking Status: Former smoker Past Alcohol Use History: Occasional Past Drug Use History: None Reported - Past Family History Mother Family Medical History: Chest Pain / Angina Father Additional Family Medical History / Comment(s): many health problems Medications and Allergies Home Medications Medication Instructions Recorded Confirmed Type Mesalamine 4.8 gm PO DAILY 03/17/22 12/10/24 History amLODIPine [Norvasc] 5 mg PO BID PRN 03/17/22 12/10/24 History Albuterol Inhaler [Ventolin Hfa 2 puff INHALATION RT-Q4H PRN 08/07/24 12/10/24 History Inhaler] Diclofenac Sodium [Voltaren] 75 mg PO BID 08/07/24 12/10/24 History Diclofenac Sodium Gel [Voltaren 1% 1 applic TOPICAL QID PRN 12/10/24 12/10/24 History Gel] Dicyclomine [Bentyl] 10 mg PO TID PRN 12/10/24 12/10/24 History Ketoconazole 2% Shampoo [Nizoral] 1 applic TOPICAL DAILY PRN 12/10/24 12/10/24 History Allergies Allergy/AdvReac Type Severity Reaction Status Date / Time cephalexin [From Keflex] AdvReac Nausea & Verified 12/10/24 19:37 Vomiting ciprofloxacin AdvReac Nausea & Verified 12/10/24 19:37 Vomiting & Diarrhea clindamycin AdvReac Nausea & Verified 12/10/24 19:37 Vomiting & Diarrhea prednisone AdvReac doses Verified 12/10/24 19:37 higher than 10mg causes dizziness Tetracyclines AdvReac Nausea & Verified 12/10/24 19:37 Vomiting Physical Exam Vitals: Vital Signs Temp Pulse Resp BP Pulse Ox 12/11/24 07:17 67 18 102/68 96 12/11/24 05:57 97.5 F L 61 17 106/68 98 12/11/24 00:27 97.6 F 74 17 103/82 96 12/10/24 19:59 97.8 F 92 17 108/78 97 12/10/24 16:26 84 18 119/77 97 12/10/24 15:44 90 12/10/24 15:31 88 12/10/24 13:44 97.8 F 69 22 102/79 100 Intake and Output 12/10/24 12/11/24 12/11/24 22:59 06:59 14:59 Intake Total 68.5 Balance 68.5 Intake: Intake, IV Titration 68.5 Amount Heparin Sod,Pork in 0.45% 68.5 NaCl 25,000 unit In 0.45 % NaCl 1 250ml.bag @ 11. 917 UNITS/KG/HR 10 mls/hr IV .Q24H [facility] Rx#: [id number] Results CBC & Chem 7: 12/11/24 07:17 12/10/24 14:08 Labs: Abnormal Lab Results - Last 24 Hours (Table) 12/10/24 12/10/24 12/10/24 Range/Units 14:08 14:08 14:08 WBC 10.18 H (4.50-10.00) 10*3/uL RBC 3.50 L (4.40-5.60) 10*6/uL Hgb 12.5 L (13.0-17.0) g/dL Hct 34.9 L (39.6-50.0) % MCV 99.7 H (80.0-97.0) fL MCH 35.7 H (27.0-32.0) pg MPV 9.4 L (9.5-12.2) fL PT (10.0-12.5) sec INR (<1.2) APTT 20.7 L (22.0-30.0) sec D-Dimer 0.89 H (<0.60) mg/L FEU Carbon Dioxide 17 L (22-30) mmol/L BUN 51 H (9-20) mg/dL Creatinine 1.39 H (0.66-1.25) mg/dL Glucose 115 H (74-99) mg/dL Total Bilirubin 2.0 H (0.2-1.3) mg/dL AST 118 H (17-59) U/L ALT 88 H (4-49) U/L Troponin I (0.000-0.034) ng/mL 12/10/24 12/10/24 12/10/24 Range/Units 14:08 18:24 23:03 WBC (4.50-10.00) 10*3/uL RBC (4.40-5.60) 10*6/uL Hgb (13.0-17.0) g/dL Hct (39.6-50.0) % MCV (80.0-97.0) fL MCH (27.0-32.0) pg MPV (9.5-12.2) fL PT (10.0-12.5) sec INR (<1.2) APTT 67.9 H (22.0-30.0) sec D-Dimer (<0.60) mg/L FEU Carbon Dioxide (22-30) mmol/L BUN (9-20) mg/dL Creatinine (0.66-1.25) mg/dL Glucose (74-99) mg/dL Total Bilirubin (0.2-1.3) mg/dL AST (17-59) U/L ALT (4-49) U/L Troponin I 0.111 H* 0.128 H* (0.000-0.034) ng/mL 12/10/24 12/11/24 12/11/24 Range/Units 23:03 07:17 07:17 WBC (4.50-10.00) 10*3/uL RBC 2.88 L (4.40-5.60) 10*6/uL Hgb 10.3 L (13.0-17.0) g/dL Hct 29.5 L (39.6-50.0) % MCV 102.4 H (80.0-97.0) fL MCH 35.8 H (27.0-32.0) pg MPV 9.1 L (9.5-12.2) fL PT 13.2 H (10.0-12.5) sec INR 1.2 H (<1.2) APTT 91.1 H (22.0-30.0) sec D-Dimer (<0.60) mg/L FEU Carbon Dioxide (22-30) mmol/L BUN (9-20) mg/dL Creatinine (0.66-1.25) mg/dL Glucose (74-99) mg/dL Total Bilirubin (0.2-1.3) mg/dL AST (17-59) U/L ALT (4-49) U/L Troponin I 0.140 H* (0.000-0.034) ng/mL
--- NOTE | 2024-12-11 12:31 | P.CONS ---
History of Present Illness - Reason for Consult Consult date: 12/11/24 Colitis, bright red blood per rectum Requesting physician: Maurisio Landon - Chief Complaint Concern for colitis flare - History of Present Illness This is a pleasant 74-year-old male who presented to the emergency department yesterday afternoon with multiple complaints. Past medical history includes ulcerative colitis, COPD, and hypertension. Patient apparently was having c oncerns that he was having colitis flareup and he had not been feeling well over the last several days. He was traveling and out of the formerly [facility] and he has been having decreased appetite, shortness of breath, and multiple other complaints. Apparently something got messed up with his mesalamine that he takes for his ulcerative colitis which was diagnosed around 10 years ago. He had been on a research medication called Fitgotnib which was stopped at the end of July of this year. He initially was on mesalamine and that was increased to 4.8 g daily and may secondary to colitis flare. Who apparently during his trip to see his nephew and [place] he was having difficulty swallowing his mesalamine secondary to the size of the tablets and he says he has a large hiatal hernia and it can be difficult at times. He states that it felt like it was getting stuck and then he was having difficulty swallowing so he stopped taking his medication for about 5 days. Due to not feeling well he was traveling back which he then got stuck in [place] for about 4 days and feels though he likely was dehydrated secondary to the heat. Once he arrived back Wednesday night he had multiple episodes of diarrhea with blood in it. Wednesday he continued to have further bowel movements 5-6 with bright red blood and became dizzy so he came to the emergency department for further evaluation. Last colonoscopy was July [address] Latham within normal appearing colon with recommendation for repeat in 2 years. States no abdominal pain, no nausea or vomiting. Has a little bit of lower abdominal cramping. No bowel movement today no rectal bleeding. Patient did have a 2 g drop in his hemoglobin from admission to today. Also noted to have elevated troponins for which cardiology was consulted however acute coronary event has been ruled out. Review of Systems REVIEW OF SYSTEMS: CARDIOPULMONARY: No chest pain, positive shortness of breath Gastrointestinal: No abdominal pain. No nausea or vomiting. No hematemesis, coffee-ground emesis. Positive for rectal bleeding. GENITOURINARY: No dysuria or hematuria. MUSCULOSKELETAL: Reports normal range of motion. SKIN: No rashes. No jaundice. ENDOCRINE: No chills, fevers. No excessive weight gain or loss. No polydipsia or polyuria. PSYCHIATRIC: Unremarkable. NEUROLOGY: No change in mental status. Denies dizziness, headache. ENT: Vision unremarkable. CONSTITUTIONAL: No recent weight loss. No fever, chills, night sweats. Past Medical History Past Medical History: Asthma, Cancer, COPD, Eye Disorder, Hypertension, Osteoarthritis (OA) Additional Past Medical History / Comment(s): GLAUCOMA-BILAT EYES, basal cell more than 10 yrs ago. ULCERATUVE COLITIS, had double vision for several seconds, mri showed none, TIA History of Any Multi-Drug Resistant Organisms: None Reported Past Surgical History: Hernia Repair, Tonsillectomy Additional Past Surgical History / Comment(s): COLONOSCOPY, rt hand removed a joint and replaced with cable, HERNIA X 4, joaquim cataracts removed in July 2024 Past Anesthesia/Blood Transfusion Reactions: No Reported Reaction Past Psychological History: No Psychological Hx Reported Smoking Status: Former smoker Past Alcohol Use History: Occasional Past Drug Use History: None Reported - Past Family History Mother Family Medical History: Chest Pain / Angina Father Additional Family Medical History / Comment(s): many health problems Medications and Allergies Home Medications Medication Instructions Recorded Confirmed Type Mesalamine 4.8 gm PO DAILY 03/17/22 12/10/24 History amLODIPine [Norvasc] 5 mg PO BID PRN 03/17/22 12/10/24 History Albuterol Inhaler [Ventolin Hfa 2 puff INHALATION RT-Q4H PRN 08/07/24 12/10/24 History Inhaler] Diclofenac Sodium [Voltaren] 75 mg PO BID 08/07/24 12/10/24 History Diclofenac Sodium Gel [Voltaren 1% 1 applic TOPICAL QID PRN 12/10/24 12/10/24 History Gel] Dicyclomine [Bentyl] 10 mg PO TID PRN 12/10/24 12/10/24 History Ketoconazole 2% Shampoo [Nizoral] 1 applic TOPICAL DAILY PRN 12/10/24 12/10/24 History Allergies Allergy/AdvReac Type Severity Reaction Status Date / Time cephalexin [From Keflex] AdvReac Nausea & Verified 12/10/24 19:37 Vomiting ciprofloxacin AdvReac Nausea & Verified 12/10/24 19:37 Vomiting & Diarrhea clindamycin AdvReac Nausea & Verified 12/10/24 19:37 Vomiting & Diarrhea prednisone AdvReac doses Verified 12/10/24 19:37 higher than 10mg causes dizziness Tetracyclines AdvReac Nausea & Verified 12/10/24 19:37 Vomiting Physical Exam Vitals: Vital Signs Temp Pulse Resp BP Pulse Ox 12/11/24 07:17 67 18 102/68 96 12/11/24 05:57 97.5 F L 61 17 106/68 98 12/11/24 00:27 97.6 F 74 17 103/82 96 12/10/24 19:59 97.8 F 92 17 108/78 97 12/10/24 16:26 84 18 119/77 97 12/10/24 15:44 90 12/10/24 15:31 88 12/10/24 13:44 97.8 F 69 22 102/79 100 Intake and Output 12/10/24 12/11/24 12/11/24 22:59 06:59 14:59 Intake Total 68.5 Balance 68.5 Intake: Intake, IV Titration 68.5 Amount Heparin Sod,Pork in 0.45% 68.5 NaCl 25,000 unit In 0.45 % NaCl 1 250ml.bag @ 11. 917 UNITS/KG/HR 10 mls/hr IV .Q24H [facility] Rx#: [id number] General appearance: The patient is alert, oriented, appears in no acute distress. HET: Head is normocephalic and atraumatic. Conjunctiva pink. Sclera anicteric. Neck: Supple without lymphadenopathy. Trachea midline. Heart: Regular. Lungs: Equal expansion, normal respiratory effort. Abdomen: Soft, nontender, nondistended. Skin: No rashes. No jaundice. Extremities: Normal skin color and turgor. No pedal edema. Neurological: No focal deficits. Alert and oriented x3. Results CBC & Chem 7: 12/11/24 07:17 12/10/24 14:08 Labs: Abnormal Lab Results - Last 24 Hours (Table) 12/10/24 12/10/24 12/10/24 Range/Units 14:08 14:08 14:08 WBC 10.18 H (4.50-10.00) 10*3/uL RBC 3.50 L (4.40-5.60) 10*6/uL Hgb 12.5 L (13.0-17.0) g/dL Hct 34.9 L (39.6-50.0) % MCV 99.7 H (80.0-97.0) fL MCH 35.7 H (27.0-32.0) pg MPV 9.4 L (9.5-12.2) fL PT (10.0-12.5) sec INR (<1.2) APTT 20.7 L (22.0-30.0) sec D-Dimer 0.89 H (<0.60) mg/L FEU Carbon Dioxide 17 L (22-30) mmol/L BUN 51 H (9-20) mg/dL Creatinine 1.39 H (0.66-1.25) mg/dL Glucose 115 H (74-99) mg/dL Total Bilirubin 2.0 H (0.2-1.3) mg/dL AST 118 H (17-59) U/L ALT 88 H (4-49) U/L Troponin I (0.000-0.034) ng/mL 12/10/24 12/10/24 12/10/24 Range/Units 14:08 18:24 23:03 WBC (4.50-10.00) 10*3/uL RBC (4.40-5.60) 10*6/uL Hgb (13.0-17.0) g/dL Hct (39.6-50.0) % MCV (80.0-97.0) fL MCH (27.0-32.0) pg MPV (9.5-12.2) fL PT (10.0-12.5) sec INR (<1.2) APTT 67.9 H (22.0-30.0) sec D-Dimer (<0.60) mg/L FEU Carbon Dioxide (22-30) mmol/L BUN (9-20) mg/dL Creatinine (0.66-1.25) mg/dL Glucose (74-99) mg/dL Total Bilirubin (0.2-1.3) mg/dL AST (17-59) U/L ALT (4-49) U/L Troponin I 0.111 H* 0.128 H* (0.000-0.034) ng/mL 12/10/24 12/11/24 12/11/24 Range/Units 23:03 07:17 07:17 WBC (4.50-10.00) 10*3/uL RBC 2.88 L (4.40-5.60) 10*6/uL Hgb 10.3 L (13.0-17.0) g/dL Hct 29.5 L (39.6-50.0) % MCV 102.4 H (80.0-97.0) fL MCH 35.8 H (27.0-32.0) pg MPV 9.1 L (9.5-12.2) fL PT 13.2 H (10.0-12.5) sec INR 1.2 H (<1.2) APTT 91.1 H (22.0-30.0) sec D-Dimer (<0.60) mg/L FEU Carbon Dioxide (22-30) mmol/L BUN (9-20) mg/dL Creatinine (0.66-1.25) mg/dL Glucose (74-99) mg/dL Total Bilirubin (0.2-1.3) mg/dL AST (17-59) U/L ALT (4-49) U/L Troponin I 0.140 H* (0.000-0.034) ng/mL Assessment and Plan (1) Ulcerative colitis Narrative/Plan: 74-year-old male with a history of ulcerative colitis on mesalamine presenting with multiple complaints including rectal bleeding and concern for UC flare. Due to some difficulty with swallowing patient had stopped taking his mesalamine and was on a research medication for 10 years which was discontinued as well and July of this year. Likely patient have an ulcerative colitis flare, noted to have elevated CRP. Last colonoscopy normal in July 2023. Will start IV Solu-Medrol, continue balsalazide. Current Visit: Yes Status: Acute Code(s): K51.90 - ULCERATIVE COLITIS, UNSPECIFIED, WITHOUT COMPLICATIONS SNOMED Code(s): 18300049 (2) Dyspnea Current Visit: Yes Status: Acute Code(s): R06.00 - DYSPNEA, UNSPECIFIED SNOMED Code(s): 461057997 (3) Elevated troponin Current Visit: Yes Status: Acute Code(s): R79.89 - OTHER SPECIFIED ABNORMAL FINDINGS OF BLOOD CHEMISTRY SNOMED Code(s): 137184869 Plan: 1. Continue symptomatic and supportive care 2. Diet as tolerated 3. Continue balsalazide as ordered 4. CRP and sed rate ordered 5. Start Solu-Medrol 20 mg IV every 8 hours 6. No plans on colonoscopy at this time. Further recommendations forthcoming based on clinical course. Thank you for this consultation, we will continue to follow. Dr. Deysi Latham I agree with the dictator's note, documented as a scribe by Ade Nino.
[2024-12-11] MEDS: methylPREDNISolone SOD SUCCI 40 MG/ML 1 ML VIAL IV SCH (15:15)
[2024-12-11] MEDS: BALSALAZIDE DISODIUM 750 MG CAPSULE PO SCH (15:16)
[2024-12-11 22:13] LABS: Cholesterol 148.00 mg/dL (0.00-200.00); HDL Cholesterol 59.00 mg/dL (40.00-60.00); LDL Cholesterol,Calculated 78.1 mg/dL (0.0-131.0); Triglycerides 54.40 mg/dL (0.00-149.00); VLDL Calculation 10.88 mg/dL (5.00-40.00)
[2024-12-12 05:53] VITALS: BP 127/80; PULSE 58; TEMP 97.8
[2024-12-12 07:41] LABS: African American GFR (CKD) >90 (>60 ml/min/1.73 sqM); Anion Gap 8 mmol/L; Blood Urea Nitrogen 25 mg/dL (9-20); Calcium 8.7 mg/dL (8.4-10.2); Carbon Dioxide 20 mmol/L (22-30); Chloride 110 mmol/L (98-107); Glucose 122 mg/dL (74-99); Non-African American GFR(CKD) 89 (>60 ml/min/1.73 sqM); Potassium 4.0 mmol/L (3.5-5.1); Sodium 138 mmol/L (137-145)
--- NOTE | 2024-12-12 11:02 | P.PN ---
Subjective Progress Note Date: 12/12/24 The patient is a 74-year-old male with a history of hypertension, ulcerative colitis who presents with symptoms of progressive fatigue, diarrhea, lower GI bleeding. He was in [place] visiting his nephew and had difficulty with his mesalamine pill subsequently decided to come back to [place] and while in [place] was not feeling well with some abdominal discomfort. He had to stay in [place] longer because of his truck not working and it was hot and humid and upon arrival to [place] he was not feeling well around came into the emergency room for further evaluation. 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 He has no chest discomfort or significant dyspnea. He denies any arrhythmia. He has no PND, orthopnea or peripheral edema. His troponin was mildly elevated and flat but he had evidence of renal function abnormalities. His EKG showed no acute ST segment changes. The patient consumes alcohol in the form of beer and a daily basis Medications: Amlodipine 5 mg as needed mesalamine Voltaren dicyclomine and albuterol, 12/12/2024 Patient was seen and examined resting comfortably in bed in ER awaiting a room on 3 S. Overall he is feeling a bit better. He was seen by GI yesterday and started on steroids as well as Balsalazide. EKG done this morning shows new T wave abnormalities. We have not received records from [facility] on his heart catheterization done about a year and a half ago. Patient is wanting to go home today. Explained rationale for staying for further evaluation. The patient verbalized possibly signing out AMA. Physical Examination: 74-year-old male, alert oriented no apparent distress,Blood pressure 102/70, Heart rate 60 Head: Normocephalic. Eyes: Sclerae nonicteric. Neck: Good carotid upstroke, no bruit, no jugular venous distention. Lungs: Clear to auscultation. Heart: Regular rate and rhythm, S1-S2, no S3, no rub. No murmur. Abdomen: Soft nontender, positive bowel sounds no organomegaly. Extremities: No edema, intact distal pulses. Impression: 1. Ulcerative colitis with diarrhea and GI bleeding 2. Troponin elevation most likely presenting type II event worsened by the acute renal failure, new EKG changes this morning that are concerning 3. Acute kidney injury 4. Coronary artery calcification by CT scan with no high-grade stenosis by coronary angiography a year and a half ago 5. History of hypertension Plan: From cardiology's perspective we would like to obtain a 2D echo with Doppler study to assess cardiac structure and function. Add aspirin if okay with GI. Explained to the patient rationale for staying specially due to new EKG changes. If patient signed out AMA we would recommend at least a low-dose aspirin. And statin therapy. We will continue to follow him. If patient signs out he will follow-up as an outpatient with his primary rubber compounder supervisor. BAG WORKER note has been reviewed, I agree with a documented findings and plan of care. Patient was seen and examined. Objective - Vital Signs Vital signs: Vital Signs Temp 97.8 F 12/12/24 05:50 Pulse 58 L 12/12/24 05:50 Resp 18 12/12/24 05:50 BP 127/80 12/12/24 05:50 Pulse Ox 98 12/12/24 05:50 FiO2 - Labs CBC & Chem 7: 12/11/24 07:17 12/12/24 06:21 Labs: Abnormal Lab Results - Last 24 Hours (Table) 12/11/24 12/12/24 Range/Units 07:17 06:21 Chloride 110 H (98-107) mmol/L Carbon Dioxide 20 L (22-30) mmol/L BUN 25 H (9-20) mg/dL Glucose 122 H (74-99) mg/dL C-Reactive Protein 2.1 H (<1.0) mg/dL
[2024-12-12 11:59] LABS: HCT 27.8 % (39.6-50.0); HGB 9.5 g/dL (13.0-17.0); MCH 35.3 pg (27.0-32.0); MCHC 34.2 g/dL (32.0-37.0); MCV 103.3 fL (80.0-97.0); Platelet Count 198 10*3/uL (140-440); RBC 2.69 10*6/uL (4.40-5.60); RDW 13.1 % (11.5-14.5); WBC 9.21 10*3/uL (4.50-10.00)
--- NOTE | 2024-12-12 12:06 | P.PN ---
Subjective Progress Note Date: 12/12/24 Principal diagnosis: Ulcerative colitis This is a pleasant 74-year-old male who presented to the emergency department yesterday afternoon with multiple complaints. Past medical history includes ulcerative colitis, COPD, and hypertension. Patient apparently was having concerns that he was having colitis flareup and he had not been feeling well over the last several days. He was traveling and out of the [facility] and he has been having decreased appetite, shortness of breath, and multiple other complaints. Apparently something got messed up with his mesalamine that he takes for his ulcerative colitis which was diagnosed around 10 years ago. He had been on a research medication called Fitgotnib which was stopped at the end of July of this year. He initially was on mesalamine and that was increased to 4.8 g daily and may secondary to colitis flare. Who apparently during his trip to see his nephew and [place] he was having difficulty swallowing his mesalamine secondary to the size of the tablets and he says he has a large hiatal hernia and it can be difficult at times. He states that it felt like it was getting stuck and then he was having difficulty swallowing so he stopped taking his medication for about 5 days. Due to not feeling well he was tra veling back which he then got stuck in [place] for about 4 days and feels though he likely was dehydrated secondary to the heat. Once he arrived back Wednesday night he had multiple episodes of diarrhea with blood in it. Wednesday he continued to have further bowel movements 5-6 with bright red blood and became dizzy so he came to the emergency department for further evaluation. Last colonoscopy was July [address] Latham within normal appearing colon with recommendation for repeat in 2 years. States no abdominal pain, no nausea or vomiting. Has a little bit of lower abdominal cramping. No bowel movement today no rectal bleeding. Patient did have a 2 g drop in his hemoglobin from admission to today. Also noted to have elevated troponins for which cardiology was consulted however acute coronary event has been ruled out. 12/12/2024 Patient seen and examined today as a follow-up. He is currently sitting up eating breakfast. States he has been eating and tolerating it well. No abdominal pain, no further bowel movements or bleeding. He is tolerating his IV steroids. Also tolerating the balsalazide and able to swallow without difficulty. Apparently nursing called pharmacy and they stated that it could be open and put into pudding. Objective - Vital Signs Vital signs: Vital Signs Temp 97.8 F 12/12/24 05:50 Pulse 58 L 12/12/24 05:50 Resp 18 12/12/24 05:50 BP 127/80 12/12/24 05:50 Pulse Ox 98 12/12/24 05:50 FiO2 - Exam General appearance: The patient is alert, oriented, appears in no acute distress. HET: Head is normocephalic and atraumatic. Conjunctiva pink. Sclera anicteric. Neck: Supple without lymphadenopathy. Abdomen: Soft, nontender, nondistended. Extremities: Normal skin color and turgor. No pedal edema Skin: No rashes, no jaundice Neurological: No focal deficits. Alert and oriented. - Labs CBC & Chem 7: 12/12/24 10:14 12/12/24 06:21 Labs: Abnormal Lab Results - Last 24 Hours (Table) 12/11/24 12/12/24 Range/Units 07:17 06:21 Chloride 110 H (98-107) mmol/L Carbon Dioxide 20 L (22-30) mmol/L BUN 25 H (9-20) mg/dL Glucose 122 H (74-99) mg/dL C-Reactive Protein 2.1 H (<1.0) mg/dL Assessment and Plan (1) Ulcerative colitis Narrative/Plan: 74-year-old male with a history of ulcerative colitis on mesalamine presenting with multiple complaints including rectal bleeding and concern for UC flare. Due to some difficulty with swallowing patient had stopped taking his mesalamine and was on a research medication for 10 years which was discontinued as well and July of this year. Likely patient have an ulcerative colitis flare, noted to have elevated CRP. Last colonoscopy normal in July 2023. Will start IV Solu-Medrol, continue balsalazide. Symptoms have improved. Patient has not had any further rectal bleeding or diarrhea and tolerating a regular diet. Current Visit: Yes Status: Acute Code(s): K51.90 - ULCERATIVE COLITIS, UNSPECIFIED, WITHOUT COMPLICATIONS SNOMED Code(s): 19335474 (2) Dyspnea Current Visit: Yes Status: Acute Code(s): R06.00 - DYSPNEA, UNSPECIFIED SNOMED Code(s): 639332786 (3) Elevated troponin Narrative/Plan: Cardiology following Current Visit: Yes Status: Acute Code(s): R79.89 - OTHER SPECIFIED ABNORMAL FINDINGS OF BLOOD CHEMISTRY SNOMED Code(s): 577844232 Plan: 1. Continue symptomatic and supportive care 2. Diet as tolerated 3. Continue balsalazide as ordered 4. Continue Solu-Medrol 20 mg IV every 8 hours. Patient to be discharged home on prednisone 30 mg daily for 7 days taper by 5 mg 5. No plans on colonoscopy at this time. Possible discharge later today or tomorrow with outpatient follow-up in 1 week. Thank you for this consultation, patient is cleared from gastroenterology for discharge. Dr. Deysi Latham I agree with the dictator's note, documented as a scribe by Ade PALMA .
--- NOTE | 2024-12-12 13:54 | P.PN ---
Subjective Progress Note Date: 12/12/24 74-year-old gentleman past medical history significant for ulcerative colitis, COPD, hypertension presented to the ER for weakness and lethargy. Patient stated that for the last day he has not been feeling her usual self. Patient stated that bright red blood per rectum. Patient history of IBD and thinks that it was flaring up. Patient was complaining of decreasing appetite. There was no complaint of abdominal pain. Denies any altered bowel movements. There is no complaint of nausea or vomiting. Patient was complaining of shortness of breath. Shortness of breath was on exertion. Patient denies any chest pain. There was no complaint of orthopnea or PND. Patient denies any palpitation. Denies any nausea, vomiting abdominal pain. Patient denies any complaint of dizziness. There is no complaint of headache. Because of the symptoms, patient came to the ER Initial lab work done in the ER showed WBC 10.18, hemoglobin 12.5, platelet count 190, D-dimer 0.89, sodium 139, potassium 4.6, BUN 51, creatinine 1.39, glucose 115, total bilirubin 2.0 AST 118, ALT 88, troponin 0.111 EKG done in the ER showed heart rate of 66, no ST segment elevation or depression seen, no T-wave inversions seen. Chest x-ray done in the ER showed no acute cardiopulmonary CT head done showed no acute intracranial process CTA head and neck done showed no evidence of of dissection of the cervical internal carotid arteries or vertebral arteries, no evidence of significant stenosis at the carotid bifurcations, no evidence of intracranial high-grade stenosis or aneurysm CT chest PE protocol done showed no evidence of PE, ascending thoracic aorta ectasia up to 4 cm. Hepatic steatosis Patient admitted to internal medicine service 12/12. Patient seen examined. Denies any chest pain. Denies any shortness of breath. Patient keen to go home, cardiology has discussed with him regarding the need for him to stay in the hospital to get the echo done. GI recommended oral steroids at DC REVIEW OF SYSTEMS: CONSTITUTIONAL: No fever, no malaise,. CARDIOVASCULAR: No chest pain, no palpitations, no syncope. PULMONARY: No shortness of breath, no cough, GASTROINTESTINAL: No diarrhea, no nausea, no vomiting, no abdominal pain. NEUROLOGICAL: No headaches, no weakness, PHYSICAL EXAMINATION: GENERAL: The patient is alert and oriented x3, not in any acute distress. Well developed, well nourished. HEENT: Pupils are round and equally reacting to light. EOMI. No scleral icterus. No conjunctival pallor. Normocephalic, atraumatic. No pharyngeal erythema. No thyromegaly. CARDIOVASCULAR: S1 and S2 present. No murmurs, rubs, or gallops. PULMONARY: Chest is clear to auscultation, no wheezing or crackles. ABDOMEN: Soft, nontender, nondistended, normoactive bowel sounds. No palpable organomegaly. MUSCULOSKELETAL: No joint swelling or deformity. EXTREMITIES: No cyanosis, clubbing, or pedal edema. NEUROLOGICAL: Gross neurological examination did not reveal any focal deficits. SKIN: No rashes. Assessment and plan NSTEMI ruled out Elevated troponin, mostly type II NE Bleeding per rectum Acute exacerbation of ulcerative colitis Diarrhea EDWARDO Acute transaminitis Monitor vital signs Monitor CBC Monitor CMP Continue telemetry monitoring Follow-up on 2D echo Continue IV Protonix Continue IV Solu-Medrol Continue balsalazide Cardiology following, ordered 2D echo GI following Labs and medication were reviewed.. Continue same treatment. Continue with symptomatic treatment. Resume home medication. Monitor labs and vitals. DVT and GI prophylaxis. Further recommendations as per clinical course of the patient Dictation was produced using [employer] dictation software. please excuse any grammatical, word or spelling errors. Objective - Vital Signs Vital signs: Vital Signs Temp 97.8 F 12/12/24 05:50 Pulse 58 L 12/12/24 05:50 Resp 18 12/12/24 05:50 BP 127/80 12/12/24 05:50 Pulse Ox 98 12/12/24 05:50 FiO2 - Labs CBC & Chem 7: 12/12/24 10:14 12/12/24 06:21 Labs: Abnormal Lab Results - Last 24 Hours (Table) 12/11/24 12/12/24 Range/Units 07:17 06:21 Chloride 110 H (98-107) mmol/L Carbon Dioxide 20 L (22-30) mmol/L BUN 25 H (9-20) mg/dL Glucose 122 H (74-99) mg/dL C-Reactive Protein 2.1 H (<1.0) mg/dL
--- NOTE | 2024-12-14 09:46 | P.DS ---
Providers Date of admission: 12/10/24 17:56 Expected date of discharge: 12/12/24 Attending physician: Maurisio Landon MD Consults: 12/10/24 17:55 Consult Physician Urgent Consulting Provider: Gabe Lindo Consult Reason/Comments: dyspnea, w trop Do you want consulting provider notified?: Yes 12/11/24 10:20 Consult Physician Routine Consulting Provider: Clover Latham Consult Reason/Comments: History of colitis, bright red blood per rectum Do you want consulting provider notified?: Yes Primary care physician: Ady Beavers MD Hospital Course: Discharge diagnoses; NSTEMI ruled out Elevated troponin, mostly type II OH Bleeding per rectum Acute exacerbation of ulcerative colitis Diarrhea EDWARDO Acute transaminitis Hospital course; 74-year-old gentleman past medical history significant for ulcerative colitis, COPD, hypertension presented to the ER for weakness and lethargy. Patient stated that for the last day he has not been feeling her usual self. Patient stated that bright red blood per rectum. Patient history of IBD and thinks that it was flaring up. Patient was complaining of decreasing appetite. There was no complaint of abdominal pain. Denies any altered bowel movements. There is no complaint of nausea or vomiting. Patient was complaining of shortness of breath. Shortness of breath was on exertion. Patient denies any chest pain. There was no complaint of orthopnea or PND. Patient denies any palpitation. Denies any nausea, vomiting abdominal pain. Patient denies any complaint of dizziness. There is no complaint of headache. Because of the symptoms, patient came to the ER Initial lab work done in the ER showed WBC 10.18, hemoglobin 12.5, platelet count 190, D-dimer 0.89, sodium 139, potassium 4.6, BUN 51, creatinine 1.39, glucose 115, total bilirubin 2.0 AST 118, ALT 88, troponin 0.111 EKG done in the ER showed heart rate of 66, no ST segment elevation or depression seen, no T-wave inversions seen. Chest x-ray done in the ER showed no acute cardiopulmonary CT head done showed no acute intracranial process CTA head and neck done showed no evidence of of dissection of the cervical internal carotid arteries or vertebral arteries, no evidence of significant stenosis at the carotid bifurcations, no evidence of intracranial high-grade stenosis or aneurysm CT chest PE protocol done showed no evidence of PE, ascending thoracic aorta ectasia up to 4 cm. Hepatic steatosis Patient admitted to internal medicine service 12/12. Patient seen examined. Denies any chest pain. Denies any shortness of breath. Patient keen to go home, cardiology has discussed with him regarding the need for him to stay in the hospital to get the echo done. GI recommended oral steroids at DC Patient did not want to stay in the hospital for further cardiac workup, patient left AMA Dictation was produced using [employer] dictation software. please excuse any grammatical, word or spelling errors. Patient Condition at Discharge: Fair Plan - Discharge Summary New Discharge Prescriptions: New predniSONE 0 mg PO DIRECTED #63 tab No Action amLODIPine [Norvasc] 5 mg PO BID PRN PRN Reason: HIGH BLOOD PRESSURE Diclofenac Sodium [Voltaren] 75 mg PO BID Ketoconazole 2% Shampoo [Nizoral] 1 applic TOPICAL DAILY PRN PRN Reason: WHEN SHOWERING Diclofenac Sodium Gel [Voltaren 1% Gel] 1 applic TOPICAL QID PRN PRN Reason: Pain Mesalamine 4.8 gm PO DAILY Albuterol Inhaler [Ventolin Hfa Inhaler] 2 puff INHALATION RT-Q4H PRN PRN Reason: Shortness Of Breath Dicyclomine [Bentyl] 10 mg PO TID PRN PRN Reason: Gi Upset Discharge Medication List Mesalamine 4.8 gm PO DAILY 03/17/22 [History] amLODIPine [Norvasc] 5 mg PO BID PRN 03/17/22 [History] Albuterol Inhaler [Ventolin Hfa Inhaler] 2 puff INHALATION RT-Q4H PRN 08/07/24 [History] Diclofenac Sodium [Voltaren] 75 mg PO BID 08/07/24 [History] Diclofenac Sodium Gel [Voltaren 1% Gel] 1 applic TOPICAL QID PRN 12/10/24 [History] Dicyclomine [Bentyl] 10 mg PO TID PRN 12/10/24 [History] Ketoconazole 2% Shampoo [Nizoral] 1 applic TOPICAL DAILY PRN 12/10/24 [History] predniSONE 0 mg PO DIRECTED #63 tab 12/12/24 [Rx] Follow up Appointment(s)/Referral(s): Ady Beavers MD [Primary Care Provider] - 1-2 days Discharge Disposition: LEFT AGAINST MEDICAL ADVICE
== END 2024-12-12 14:23 | disposition left against medical advice (07) | DRG 385 ==
LOC: EC 13:43 → 3SCARD 17:56
PROVIDERS: ADMIT Internal Medicine; ATTEND Internal Medicine
DX: K51.911 Ulcerative colitis, unspecified with rectal bleeding (principal); I21.A1 Myocardial infarction type 2; J44.89 Other specified chronic obstructive pulmonary disease; I10 Essential (primary) hypertension; N17.9 Acute kidney failure, unspecified; I25.10 Atherosclerotic heart disease of native coronary artery without angina pectoris; K44.9 Diaphragmatic hernia without obstruction or gangrene; R74.01 Elevation of levels of liver transaminase levels; R79.82 Elevated C-reactive protein (CRP); Z79.51 Long term (current) use of inhaled steroids; Z79.899 Other long term (current) drug therapy; Z86.73 Personal history of transient ischemic attack (TIA), and cerebral infarction without residual deficits; Z87.891 Personal history of nicotine dependence; Z88.1 Allergy status to other antibiotic agents; Z88.8 Allergy status to other drugs, medicaments and biological substances
CPT/HCPCS: 36415; 71046; 71275; 80048; 80053; 80061; 82150; 83690; 84484; 85025; 85027; 85379; 85610; 85652; 85730; 86140; 93005; 94640; 96361; 96365; 96366; 96375; 96376; 99285